=== PATIENT | male | born 1950 | race Caucasian/White ===

== ENCOUNTER 2020-01-14 11:26 | Outpatient (CLI) | payer BC, SELFPAY ==
[2020-01-14 12:02] LABS: Hemoglobin 14.1 g/dL (14.0-18.0); Mean Corpuscular HGB Conc 33.6 g/dl (32-36); Mean Corpuscular Hemoglobin 30.7 pg (26-34); Mean Corpuscular Volume 91.5 fl (80-100); Mean Platelet Volume 10.9 fl (7.4-10.4); Platelet Count Result 176 k/mm3 (150-375); Red Blood Count 4.59 M/mm3 (4.6-6.20); Red Cell Distribution Width 12.6 % (11.5-14.5); White Blood Count 6.9 K/mm3 (4.5-10.0)
[2020-01-14 12:14] LABS: Blood Urea Nitrogen 14 mg/dL (9-20); Calcium 9.2 mg/dL (8.4-10.2); Carbon Dioxide 29 mmol/L (22-30); Chloride 97 mmol/L (98-107); Estimated Glomerular Filt Rate > 60; Glucose 90 mg/dL (75-110); Potassium 4.1 mmol/L (3.4-5.0); Sodium 131 mmol/L (137-145)
== END 2020-01-14 11:27 | disposition home or self-care (01) ==
LOC: ANHLAB 11:26
PROVIDERS: PCP Family Medicine; Visit Provider Internal Medicine Critical Care Medicine
DX: J84.89 Other specified interstitial pulmonary diseases (principal); J84.9 Interstitial pulmonary disease, unspecified
CPT/HCPCS: 36415; 80048; 85027

== ENCOUNTER 2020-01-30 11:40 | Outpatient (CLI) | payer BC, SELFPAY ==
[2020-02-10 12:36] LABS: TPMT Activity 17
== END 2020-01-30 11:41 | disposition home or self-care (01) ==
PROVIDERS: PCP Family Medicine; Visit Provider Internal Medicine Critical Care Medicine
DX: J84.89 Other specified interstitial pulmonary diseases (principal); J84.9 Interstitial pulmonary disease, unspecified
CPT/HCPCS: 36415; 82657

== ENCOUNTER 2020-04-04 15:05 | Outpatient (RCR) | payer BC, SELFPAY ==
[2020-02-29 13:52] LABS: Basophils Percent Auto 0.7 % (0.2-1.2); Eosinophils Absolute Auto 0.3 K/mm3 (0-0.3); Eosinophils Percent Auto 4.1 % (0-4.4); Hematocrit 40.4 % (42.0-52.0); Hemoglobin 13.6 g/dL (14.0-18.0); Immature Granulocyte Absolute 0.04 K/mm3 (0.00-0.031); Immature Granulocyte Percent A 0.7 % (0-0.5); Lymphocytes Absolute Auto 1.05 K/mm3 (0.9-3.2); Lymphocytes Percent Auto 17.2 % (18.3-44.2); Mean Corpuscular HGB Conc 33.7 g/dl (32-36); Mean Corpuscular Hemoglobin 30.8 pg (26-34); Mean Corpuscular Volume 91.6 fl (80-100); Mean Platelet Volume 10.7 fl (7.4-10.4); Monocytes Absolute Auto 0.6 K/mm3 (0.1-0.6); Monocytes Percent Auto 9.8 % (2.6-8.5); Neutrophils Absolute Auto 4.1 K/mm3 (1.3-6.7); Neutrophils Percent Auto 67.5 % (45.5-73.1); Platelet Count Result 223 k/mm3 (150-375); Red Blood Count 4.41 M/mm3 (4.6-6.20); White Blood Count 6.1 K/mm3 (4.5-10.0)
[2020-04-04 16:07] LABS: Basophils Percent Auto 0.6 % (0.2-1.2); Eosinophils Absolute Auto 0.3 K/mm3 (0-0.3); Hematocrit 41.2 % (42.0-52.0); Hemoglobin 13.8 g/dL (14.0-18.0); Immature Granulocyte Absolute 0.02 K/mm3 (0.00-0.031); Immature Granulocyte Percent A 0.3 % (0-0.5); Lymphocytes Percent Auto 21.5 % (18.3-44.2); Mean Corpuscular HGB Conc 33.5 g/dl (32-36); Mean Corpuscular Hemoglobin 30.9 pg (26-34); Mean Corpuscular Volume 92.4 fl (80-100); Mean Platelet Volume 10.6 fl (7.4-10.4); Monocytes Absolute Auto 0.7 K/mm3 (0.1-0.6); Monocytes Percent Auto 9.3 % (2.6-8.5); Neutrophils Absolute Auto 4.5 K/mm3 (1.3-6.7); Neutrophils Percent Auto 64.3 % (45.5-73.1); Platelet Count Result 212 k/mm3 (150-375); Red Blood Count 4.46 M/mm3 (4.6-6.20); Red Cell Distribution Width 13.1 % (11.5-14.5)
== END 2020-05-29 23:59 | disposition home or self-care (01) ==
LOC: ANHLAB 15:05
PROVIDERS: PCP Family Medicine; Visit Provider Internal Medicine Critical Care Medicine
DX: Z51.81 Encounter for therapeutic drug level monitoring (principal); Z79.899 Other long term (current) drug therapy
CPT/HCPCS: 36415; 85025

== ENCOUNTER 2020-05-26 09:53 | Outpatient (CLI) | payer BC, SELFPAY ==
--- NOTE | ~2020-05-26 | CT_ITS ---
EXAMINATION: CT chest high resolution wo co DATE: 05/26/2020 10:08 INDICATION: J84.9 - Interstitial pulmonary disease, unspecified TECHNIQUE: Computed tomography (CT) of the chest was performed without intravenous contrast. Addition al 3D reconstructions utilizing coronal maximum intensity projection (MIP) were performed. Automated exposure control and iterative reconstruction technique were employed. The dose-length product was 26 2.41 mGy-cm. COMPARISON: 03/30/2019 FINDINGS: Again seen is scattered bilateral peripheral and lower lung predominant irregular septal line thicken ing with groundglass opacity and honeycombing consistent with usual interstitial pneumonia (UIP) ihsan altagracia chronic interstitial lung disease. Interval progression with increase in the amount of honeycombi ng in the right middle, left lower lobes and lingula. There are some associated bronchiectasis extend ing to the most severely affected regions of the lungs. No pleural effusion. Heart size is normal. At herosclerotic coronary artery calcification. Aortic valve calcification. Thoracic aorta is normal in caliber. There is enlargement of the central pulmonary arteries consistent with pulmonary arterial hy pertension. No interval change in mild likely reactive mediastinal lymphadenopathy. Mild upper thorac ic levocurvature with mild to moderate spondylosis. IMPRESSION: 1. Interval progression of peripheral and lower lung predominant usual interstitial pneumonia (UIP) p attern chronic interstitial lung disease. Reviewed, dictated and finalized at location . [facility] IMPRESSION: 1. Interval progression of peripheral and lower lung predominant usual intersti tial pneumonia (UIP) pattern chronic interstitial lung disease.
== END 2020-05-26 09:54 | disposition home or self-care (01) ==
PROVIDERS: PCP Family Medicine; Visit Provider Nurse Practitioner Family
DX: J84.9 Interstitial pulmonary disease, unspecified (principal)
CPT/HCPCS: 71250

== ENCOUNTER 2020-10-16 07:59 | Outpatient (CLI) | payer BC, SELFPAY ==
--- NOTE | 2020-10-16 17:06 | P.PCNPFT_ITS ---
PFT Interpretation This is a pulmonary function test with pre and post-bronchodilator spirometry, plethysmography and diffusing capacity. The test was performed and results interpreted in accordance with the 2019 and 2005 ATS/ERS Task Force guidelines respectively using the Global Lung Function Initiative-2012 reference equations. Patient demonstrated good effort and c ooperation. Reproducibility criteria were met. The quality of the pre bronchodilator spirometry maneuver was Grade A and post bronchodilator spirometry maneuver was Grade B. patient noted to have harsh continuous coughing throughout the testing. Findings: Spirometry: The contour of the expiratory flow tracing resembles that of a witch's hat . the contour of the inspiratory flow tracing is normal. The pre bronchodilator FVC is 2.47 L, 54% predicted. The pre bronchodilator FEV1 is 1.74 L, 51% predicted. The FEV1: FVC ratio 71%. The post bronchodilator FVC is 2.44 L, representing a 1% decrease. The post bronchodilator FEV1 is 1.77 L, representing 1% increase. Plethysmography: The total lung capacity is 4.78 L, 64% predicted. The functional residual capacity is 2.09 L, 53% predicted. The residual volume is 2.01 L, 78% predicted. Diffusing capacity: The absolute diffusion capacity is 11.3, 42% predicted. The diffusing capacity corrected for alveolar volume is 2.91, 76% predicted. In comparison to the most recent pulmonary function test in our laboratory on 01/31/2019 the post bronchodilator FVC is decreased from 2.73 L to 2.44 L. The post bronchodilator FEV1 as decreased from 2.07 L to 1.77 L. the total lung capacity is decreased from 5.82 L to 4.78 L. The functional residual capacity is decreased from 4.05 L to 2.09 L. The residual volume has decreased from 2.77 L to 2.01 L. The absolute diffusing capacity has decreased from 16.9 to 11.3. The diffusing capacity corrected for alveolar volume has decreased from 3.85 to 2.91. Impression: There is a moderately severe restrictive ventilatory abnormality. The spirometry is normal without evidence of an obstructive abnormality. There is no significant improvement after inhaling a single dose of albuterol. The absolute diffusing capacity is moderately decreased and normalizes when corrected for alveolar volume. when compared to his prior pulmonary function test on 01/31/2019 there has been a greater than anticipated time dependent decrease in FVC, FEV1, total lung capacity, functional residual capacity, residual volume, absolute diffusing capacity and diffusing capacity corrected for alveolar volume. Clinical correlation is recommended. PFT Procedure Performed PFT Procedure Performed Spirometry with Pre/Post Bronchodilator Plethysmography (Lung Vol) Diffusing Cap (DLCO)
== END 2020-10-16 08:00 | disposition home or self-care (01) ==
PROVIDERS: PCP Family Medicine; Visit Provider Nurse Practitioner Family
DX: R06.02 Shortness of breath (principal); J84.9 Interstitial pulmonary disease, unspecified; R94.2 Abnormal results of pulmonary function studies
CPT/HCPCS: 94060; 94726; 94729

== ENCOUNTER 2021-02-06 14:42 | Outpatient (CLI) | payer OTHER, SELFPAY ==
[2021-02-06 15:09] LABS: Hematocrit 40.9 % (42.0-52.0); Hemoglobin 13.9 g/dL (14.0-18.0); Mean Corpuscular Hemoglobin 31.9 pg (26-34); Mean Corpuscular Volume 93.8 fl (80-100); Mean Platelet Volume 10.4 fl (7.4-10.4); Platelet Count Result 182 k/mm3 (150-375); Red Blood Count 4.36 M/mm3 (4.6-6.20); Red Cell Distribution Width 13.3 % (11.5-14.5); White Blood Count 6.6 K/mm3 (4.5-10.0)
[2021-02-06 15:17] LABS: Add Urine Microscopic? YES; Appearance Urine Clear (Clear); Bilirubin Urine Negative (Negative); Blood Urine Negative (Negative); Color Urine Yellow (Yellow); Glucose Urine UA Negative (Negative); Ketones Urine Negative (Negative); Leukocyte Esterase Ur Negative LEU/UL (NEGATIVE); Nitrate Urine Negative (Negative); Protein Urine Negative (Negative); Specific Grav Ur 1.011 (1.001-1.035); WBC Urine 0-3 /hpf (0-3)
[2021-02-06 15:22] LABS: Alanine Aminotransferase 15 U/L (4-50); Albumin Level 4.4 g/dL (3.5-5.1); Alkaline Phosphatase 86 U/L (38-126); Anion Gap 10 mmol/L (8-16); Aspartate Amino Transferase 28 U/L (17-59); Bilirubin,Total 0.4 mg/dL (0.2-1.3); Blood Urea Nitrogen 13 mg/dL (9-20); Carbon Dioxide 24 mmol/L (22-30); Chloride 99 mmol/L (98-107); Cholesterol 137 mg/dL (0-200); Estimated Glomerular Filt Rate > 60; Glucose 94 mg/dL (65-110); HDL Direct 37 mg/dL; Potassium 4.4 mmol/L (3.4-5.0); Sodium 133 mmol/L (137-145); Triglycerides 161 mg/dL (<150)
[2021-02-06 15:33] LABS: LDL Cholesterol Direct 72 mg/dL
== END 2021-02-06 14:43 | disposition home or self-care (01) ==
LOC: ANHLAB 14:43
PROVIDERS: PCP Family Medicine; Visit Provider Family Medicine
DX: R53.83 Other fatigue (principal); E78.5 Hyperlipidemia, unspecified; I10 Essential (primary) hypertension
CPT/HCPCS: 36415; 80053; 80061; 81001; 84443; 85027

== ENCOUNTER 2021-02-23 15:00 | Outpatient (CLI) | payer OTHER, SELFPAY ==
[2021-02-23 16:28] LABS: Add Urine Microscopic? YES; Appearance Urine Clear (Clear); Bilirubin Urine Negative (Negative); Blood Urine 1+ (Negative); Color Urine Yellow (Yellow); Glucose Urine UA Negative (Negative); Ketones Urine Negative (Negative); Leukocyte Esterase Ur Negative LEU/UL (NEGATIVE); Nitrate Urine Negative (Negative); Protein Urine Negative (Negative); Specific Grav Ur 1.012 (1.001-1.035); Squamous Epithelial Cell Urine Rare /hpf (Few); WBC Urine 0-3 /hpf (0-3)
[2021-02-23 18:37] LABS: Prostate Specific Antigen 3.7 ng/mL (< OR = 4.0)
== END 2021-02-23 15:01 | disposition home or self-care (01) ==
PROVIDERS: PCP Family Medicine; Visit Provider Physician Assistant
DX: N40.1 Benign prostatic hyperplasia with lower urinary tract symptoms (principal); R31.9 Hematuria, unspecified
CPT/HCPCS: 36415; 81001; 84153

== ENCOUNTER → 2021-03-10 15:08 | Outpatient (CLI) | payer OTHER, SELFPAY ==
--- NOTE | ~2021-03-10 | CT_ITS ---
EXAMINATION: CT abdomen pelvis wo con DATE: 03/10/2021 15:31 INDICATION: Microscopic hematuria. TECHNIQUE: Computed tomography (CT) of the abdomen and pelvis was performed without intravenous contr ast. Automated exposure control and iterative reconstruction technique were employed. The dose-length product was 1002.51 mGy-cm. COMPARISON: Chest CT 05/26/2020. FINDINGS: The visualized portions of the lung bases demonstrates extensive septal thickening, groundg lass opacities, bronchiectasis, and peripheral honeycombing, consistent with chronic interstitial sherin g disease in a pattern of usual interstitial pneumonia (UIP). There is gas in right chest wall. The h eart size is normal. There are coronary artery calcifications. No pericardial effusion. There is a sm all sliding hiatal hernia. The liver, gallbladder, spleen, pancreas, and adrenal glands are normal. T here are three 1-2 mm stones in right kidney. There are approximately four 1 mm stones in left kidney . There is diffuse bladder wall thickening, likely secondary to chronic outlet obstruction from the m oderately enlarged prostate. The bladder is distended. There are bladder stones measuring up to 3 mm. There are no dilated loops of bowel. The appendix is normal. There are no pathologically enlarged ly mph nodes. There is no free intraperitoneal fluid. There is severe lumbar spondylosis. IMPRESSION: 1. Small bilateral nonobstructing kidney stones. 2. Small bladder stones. 3. Diffuse bladder wall thickening, likely secondary to chronic outlet obstruction from the moderatel y enlarged prostate. 4. Chronic interstitial lung disease in a pattern of usual interstitial pneumonia (UIP). 5. Gas in right chest wall of uncertain etiology. Reviewed, dictated and finalized at location A. IMPRESSION: 1. Small bilateral nonobstructing kidney stones. 2. Small bladder stones. 3. Diffuse bladder wall thickening, likely secondary to chronic outlet obstruct ion from the moderately enlarged prostate. 4. Chronic interstitial lung disease in a pattern of usual interstitial pneumon ia (UIP). 5. Gas in right chest wall of uncertain etiology.
== END ==
PROVIDERS: PCP Family Medicine; Visit Provider Physician Assistant
DX: N40.1 Benign prostatic hyperplasia with lower urinary tract symptoms (principal); R31.9 Hematuria, unspecified; N21.0 Calculus in bladder; R91.8 Other nonspecific abnormal finding of lung field; N20.0 Calculus of kidney
CPT/HCPCS: 74176

== ENCOUNTER 2021-05-08 01:30 | Day surgery (SDC) | payer OTHER, SELFPAY ==
[2021-04-17 14:42] VITALS: BMI 28.4
--- NOTE | 2021-05-06 13:07 | PM.HPGS ---
History of Present Illness History of Present Illness Consent: Risks, benefits, and alternatives have been discussed and questions answered. Patient agrees to proceed with procedure. Chief complaint: neoplam screening Narrative: Anders Umaña is a 71 year old male who Was referred for colon cancer screening. His last colonoscopy was 11 years ago Review of Systems Review of Systems: All systems reviewed & are unremarkable except as noted in HPI and below PMFSH Past Medical History Medical History Allergic rhinitis Benign prostatic hyperplasia with lower urinary tract symptoms Chronic GERD Essential (primary) hypertension HLD (hyperlipidemia) ILD (interstitial lung disease) KRISTI (obstructive sleep apnea) Rosacea Family History Family History Father Family history of cardiovascular disease Mother Family history of cardiovascular disease Cerebrovascular accident Social History Social History Smoking status: Never smoker Second hand tobacco smoke exposure: No Alcohol intake: never Substance use: former Substance use type: does not use Living arrangements: with family Gender identity (if verbalized by the patient): Male Sexual Orientation (if Verbalized by the Patient): Straight or Heterosexual Spiritual care concerns: No Meds Home Medications and Allergies Home Medications Medication Instructions Recorded Confirmed Type cetirizine 10 mg tablet 5 mg PO DAILY PRN 07/19/19 04/17/21 History metronidazole 0.75 % topical cream 1 applic TOPICAL BID #45 gm 07/20/19 04/17/21 Rx losartan 50 mg tablet 50 mg PO DAILY #90 tablet 02/03/21 04/17/21 Rx finasteride 5 mg tablet 5 mg PO DAILY #90 tablet 03/13/21 04/17/21 Rx azelastine 137 mcg (0.1 %) nasal 2 spray NASAL Q12H #90 ml 03/26/21 04/17/21 Rx spray aerosol azathioprine 150 mg PO DAILY 04/17/21 04/17/21 History cholecalciferol (vitamin D3) 25 mcg PO DAILY 04/17/21 04/17/21 History [Vitamin D3] simvastatin 40 mg PO DAILY 04/17/21 04/17/21 History Allergies Allergy/AdvReac Type Severity Reaction Status Date / Time cat dander Allergy Other Verified 05/08/21 06:14 grass pollen Allergy Other Verified 05/08/21 06:14 Exam Resp: Auscultation: clear to auscultation bilaterally Cardio: Rate: regular rate Rhythm: regular rhythm GI: GI Palp: Yes Soft to palpation and No Tenderness to palpation present (GI) Assessment and Plan Assessment and plan (1) Colon cancer screening: Code(s): Z12.11 - Encounter for screening for malignant neoplasm of colon Status: Acute Assessment and Plan: Colonoscopy with possible biopsy or polypectomy or cautery or injection of substances.
[2021-05-08 06:15] VITALS: BP 137/86; PULSE 94; RESP 20; TEMP 36.6; O2SAT 97; BMI 27.7
[2021-05-08] MEDS: LACTATED RINGERS 1,000 ML 150 ML IV CONT (06:26)
--- NOTE | 2021-05-08 06:36 | WPDANESEPPF ---
Anes - Initial Pre Proc Eval Procedure: Operation Date: 05/08/21 07:30 Proposed Procedures p Screening Colonoscopy - Todd Sehikh MD Date/Time: 05/08/21 06:36 Surgeon: Todd Sheikh MD Pre Op Diagnosis: neoplam screening Patient Data Age: 71 Gender: M Height: 1.83 m Weight: 92.8 kg Last Vital Signs Temp 36.6 C 05/08/21 06:15 Pulse 94 05/08/21 06:15 Resp 20 05/08/21 06:15 BP 137/86 05/08/21 06:15 Pulse Ox 97 05/08/21 06:15 Allergies Allergy/AdvReac Type Severity Reaction Status Date / Time cat dander Allergy Other Verified 05/08/21 06:14 grass pollen Allergy Other Verified 05/08/21 06:14 Home Medications Medication Instructions Recorded Confirmed Type cetirizine 10 mg tablet 5 mg PO DAILY PRN 07/19/19 04/17/21 History metronidazole 0.75 % topical cream 1 applic TOPICAL BID #45 gm 07/20/19 04/17/21 Rx losartan 50 mg tablet 50 mg PO DAILY #90 tablet 02/03/21 04/17/21 Rx finasteride 5 mg tablet 5 mg PO DAILY #90 tablet 03/13/21 04/17/21 Rx azelastine 137 mcg (0.1 %) nasal 2 spray NASAL Q12H #90 ml 03/26/21 04/17/21 Rx spray aerosol azathioprine 150 mg PO DAILY 04/17/21 04/17/21 History cholecalciferol (vitamin D3) 25 mcg PO DAILY 04/17/21 04/17/21 History [Vitamin D3] simvastatin 40 mg PO DAILY 04/17/21 04/17/21 History Patient hx anesthesia problems: none Family hx anesthesia problems: none Results Review: All pre-operative results and documents have been reviewed as part of the pre-operative evaluation. [facility] Past Medical History Medical History Allergic rhinitis Benign prostatic hyperplasia with lower urinary tract symptoms Chronic GERD Essential (primary) hypertension HLD (hyperlipidemia) ILD (interstitial lung disease) KRISTI (obstructive sleep apnea) Rosacea Family History Family History Father Family history of cardiovascular disease Mother Family history of cardiovascular disease Cerebrovascular accident Social History Social History Smoking status: Never smoker Second hand tobacco smoke exposure: No Alcohol intake: never Substance use: former Substance use type: does not use Living arrangements: with family Gender identity (if verbalized by the patient): Male Sexual Orientation (if Verbalized by the Patient): Straight or Heterosexual Spiritual care concerns: No Anes - Eval Final PreProcedure Day of Procedure 05/08/21 06:36 Patient weight: overweight Heart: regular rate and rhythm Lungs: clear to auscultation Airway: Mallampati scale class II Neurological: alert and oriented Last oral intake: >/= 8 hours ASA classification: III Emergent: no Anesthetic plan: proceed Anesthesia type and monitoring: general GIVS and standard monitoring Results Review: All pre-operative results and documents have been reviewed as part of the pre-operative evaluation. Informed Consent: The patient's anesthetic plan and its attendant risks and benefits were discussed with the patient/family/POA. Questions were solicited and answers provided to the satisfaction of the patient/family/POA.
[2021-05-08 07:47] VITALS: BP 129/97; PULSE 93; RESP 30; O2SAT 97
[2021-05-08 07:57] VITALS: BP 125/83; PULSE 96; RESP 29; O2SAT 94
[2021-05-08 08:07] VITALS: BP 120/81; PULSE 85; RESP 32; O2SAT 95
== END 2021-05-08 08:17 | disposition home or self-care (01) ==
PROVIDERS: PCP Family Medicine; Visit Provider Internal Medicine Gastroenterology
PROC: 0DJD8ZZ Inspection of Lower Intestinal Tract, Via Natural or Artificial Opening Endoscopic (ICD-10-PCS; CPT 45378; principal; 2021-05-08 07:30)
DX: Z12.11 Encounter for screening for malignant neoplasm of colon (principal); I10 Essential (primary) hypertension; E78.5 Hyperlipidemia, unspecified; K21.9 Gastro-esophageal reflux disease without esophagitis; N40.1 Benign prostatic hyperplasia with lower urinary tract symptoms; J84.9 Interstitial pulmonary disease, unspecified; J30.9 Allergic rhinitis, unspecified; L71.9 Rosacea, unspecified; G47.33 Obstructive sleep apnea (adult) (pediatric)
CPT/HCPCS: 45378; J2704; J7120

== ENCOUNTER 2021-05-20 14:37 | Outpatient (CLI) | payer OTHER, SELFPAY ==
[2021-05-20 15:04] LABS: Add Urine Microscopic? NO; Appearance Urine Clear (Clear); Bilirubin Urine Negative (Negative); Blood Urine Negative (Negative); Color Urine Yellow (Yellow); Glucose Urine UA Negative (Negative); Ketones Urine Negative (Negative); Leukocyte Esterase Ur Negative LEU/UL (NEGATIVE); Nitrate Urine Negative (Negative); Protein Urine Negative (Negative); Urobilinogen Urine Negative mg/dL (<2.0)
== END 2021-05-20 14:38 | disposition home or self-care (01) ==
PROVIDERS: PCP Family Medicine; Visit Provider Physician Assistant
DX: N13.8 Other obstructive and reflux uropathy (principal); N40.1 Benign prostatic hyperplasia with lower urinary tract symptoms; R31.9 Hematuria, unspecified
CPT/HCPCS: 81003

== ENCOUNTER 2021-08-04 14:18 | Outpatient (CLI) | payer MEDICARE, SELFPAY ==
[2021-08-04 15:19] LABS: Alanine Aminotransferase 17 U/L (4-50); Albumin Level 4.5 g/dL (3.5-5.1); Alkaline Phosphatase 75 U/L (38-126); Anion Gap 9 mmol/L (8-16); Aspartate Amino Transferase 32 U/L (17-59); Bilirubin,Total 0.6 mg/dL (0.2-1.3); Blood Urea Nitrogen 16 mg/dL (9-20); Calcium 9.6 mg/dL (8.4-10.2); Carbon Dioxide 30 mmol/L (22-30); Chloride 97 mmol/L (98-107); Estimated Glomerular Filt Rate > 60; Glucose 105 mg/dL (65-110); Potassium 4.1 mmol/L (3.4-5.0); Sodium 136 mmol/L (137-145)
[2021-08-04 22:00] LABS: Hemoglobin A1C 5.1 % (<5.7)
== END 2021-08-04 14:19 | disposition home or self-care (01) ==
PROVIDERS: PCP Family Medicine; Visit Provider Nurse Practitioner Family
DX: E78.5 Hyperlipidemia, unspecified (principal); I10 Essential (primary) hypertension; R73.01 Impaired fasting glucose
CPT/HCPCS: 36415; 80053; 83036

== ENCOUNTER 2021-10-27 14:56 | Outpatient (CLI) | payer MEDICARE, SELFPAY ==
[2021-10-27 16:16] LABS: Alanine Aminotransferase 18 U/L (4-50); Albumin Level 4.6 g/dL (3.5-5.1); Alkaline Phosphatase 96 U/L (38-126); Aspartate Amino Transferase 37 U/L (17-59); Bilirubin,Total 0.6 mg/dL (0.2-1.3)
== END 2021-10-27 14:57 | disposition home or self-care (01) ==
LOC: ANHLAB 14:59
PROVIDERS: PCP Family Medicine; Visit Provider Internal Medicine Pulmonary Disease
DX: J84.9 Interstitial pulmonary disease, unspecified (principal)
CPT/HCPCS: 36415; 80076; 94625

== ENCOUNTER 2021-11-30 15:23 | Outpatient (CLI) | payer MEDICARE, SELFPAY ==
[2021-11-30 15:57] LABS: Alanine Aminotransferase 20 U/L (6-50); Albumin Level 4.3 g/dL (3.5-5.1); Alkaline Phosphatase 103 U/L (38-126); Aspartate Amino Transferase 34 U/L (17-59); Bilirubin,Total 0.4 mg/dL (0.2-1.3)
== END 2021-11-30 15:24 | disposition home or self-care (01) ==
PROVIDERS: PCP Family Medicine; Visit Provider Internal Medicine Pulmonary Disease
DX: J84.9 Interstitial pulmonary disease, unspecified (principal)
CPT/HCPCS: 36415; 80076

== ENCOUNTER 2022-01-01 13:30 | Outpatient (RCR) | payer MEDICARE, SELFPAY | END 2022-01-01 23:59 | disposition home or self-care (01) | LOC: ANHCPREHAB 13:30 | PROVIDERS: PCP Family Medicine | DX: J84.9 Interstitial pulmonary disease, unspecified (principal) | CPT/HCPCS: 94625 ==

== ENCOUNTER 2022-01-16 12:30 | Outpatient (RCR) | payer MEDICARE, SELFPAY ==
[2022-01-16 13:39] LABS: Alanine Aminotransferase 21 U/L (6-50); Albumin Level 4.4 g/dL (3.5-5.1); Alkaline Phosphatase 71 U/L (38-126); Aspartate Amino Transferase 30 U/L (17-59); Bilirubin,Total 0.5 mg/dL (0.2-1.3)
== END 2022-04-16 23:59 | disposition home or self-care (01) ==
LOC: ANHLAB 12:30
PROVIDERS: PCP Family Medicine
DX: Z51.81 Encounter for therapeutic drug level monitoring (principal); Z79.899 Other long term (current) drug therapy
CPT/HCPCS: 36415; 80076

== ENCOUNTER 2022-03-12 13:30 | Outpatient (RCR) | payer MEDICARE, SELFPAY | END 2022-03-12 15:52 | disposition home or self-care (01) | LOC: ANHCPREHAB 13:30 | PROVIDERS: PCP Family Medicine | DX: J84.9 Interstitial pulmonary disease, unspecified (principal) | CPT/HCPCS: G0239 ==

== ENCOUNTER 2022-03-26 07:56 | Outpatient (CLI) | payer MEDICARE, SELFPAY ==
--- NOTE | 2022-03-26 11:19 | WPDSIXMINUTE ---
Six Minute Walk Procedure Procedure Performed Pulmonary Stress Test (6 min walk) Six Minute Walk Six Minute Walk: This 6 minute walk test was carried out with the patient breathing ambient air. The pre walk oxyhemoglobin saturation was 96%. The patient walked over 274 m with no stops during testing. During the walk the oxyhemoglobin saturation remained in the range of 93%-98%. The perceived dyspnea on the Monik scale at baseline was 0 and increased to 3 at the end of testing. Impression: No evidence of oxyhemoglobin desaturation on this testing.
== END 2022-03-26 07:57 | disposition home or self-care (01) ==
LOC: ANHPFT 08:01
PROVIDERS: PCP Family Medicine
DX: J84.9 Interstitial pulmonary disease, unspecified (principal)
CPT/HCPCS: 94618

== ENCOUNTER 2022-04-01 11:49 | Outpatient (CLI) | payer MEDICARE, SELFPAY ==
[2022-04-01 12:17] LABS: Alanine Aminotransferase 25 U/L (6-50); Albumin Level 4.5 g/dL (3.5-5.1); Alkaline Phosphatase 69 U/L (38-126); Aspartate Amino Transferase 32 U/L (17-59); Bilirubin,Total 0.6 mg/dL (0.2-1.3)
== END 2022-04-01 11:50 | disposition home or self-care (01) ==
LOC: ANHLAB 11:53
PROVIDERS: PCP Family Medicine
DX: Z79.899 Other long term (current) drug therapy (principal)
CPT/HCPCS: 36415; 80076

== ENCOUNTER 2022-05-28 14:21 | Outpatient (CLI) | payer MEDICARE, SELFPAY ==
[2022-05-28 15:01] LABS: Alanine Aminotransferase 24 U/L (6-50); Albumin Level 4.5 g/dL (3.5-5.1); Alkaline Phosphatase 90 U/L (38-126); Aspartate Amino Transferase 32 U/L (17-59); Bilirubin,Total 0.5 mg/dL (0.2-1.3)
== END 2022-05-28 14:22 | disposition home or self-care (01) ==
LOC: ANHLAB 14:24
PROVIDERS: PCP Family Medicine
DX: Z79.899 Other long term (current) drug therapy (principal)
CPT/HCPCS: 36415; 80076

== ENCOUNTER 2022-08-18 14:30 | Outpatient (CLI) | payer MEDICARE, SELFPAY ==
[2022-08-18 14:48] LABS: Hematocrit 43.3 % (42.0-52.0); Mean Corpuscular HGB Conc 32.3 g/dl (32-36); Mean Corpuscular Hemoglobin 31.1 pg (26-34); Mean Corpuscular Volume 96.2 fl (80-100); Mean Platelet Volume 10.5 fl (7.4-10.4); Platelet Count Result 161 k/mm3 (150-375); Red Cell Distribution Width 13.2 % (11.5-14.5); White Blood Count 6.4 K/mm3 (4.5-10.0)
[2022-08-18 14:58] LABS: Alanine Aminotransferase 25 U/L (6-50); Albumin Level 4.3 g/dL (3.5-5.1); Alkaline Phosphatase 74 U/L (38-126); Anion Gap 3 mmol/L (8-16); Aspartate Amino Transferase 29 U/L (17-59); Bilirubin,Total 0.4 mg/dL (0.2-1.3); Blood Urea Nitrogen 14 mg/dL (9-20); Calcium 9.4 mg/dL (8.4-10.2); Carbon Dioxide 31 mmol/L (22-30); Chloride 95 mmol/L (98-107); Cholesterol 156 mg/dL (0-200); Estimated Glomerular Filt Rate > 60; Glucose 101 mg/dL (65-110); HDL Direct 46 mg/dL; Sodium 129 mmol/L (137-145); Triglycerides 144 mg/dL (<150)
[2022-08-18 15:04] LABS: Appearance Urine Clear (Clear); Bilirubin Urine Negative (Negative); Blood Urine Trace-intact (Negative); Color Urine Yellow (Yellow); Glucose Urine UA Negative (Negative); Ketones Urine Negative (Negative); Leukocyte Esterase Ur Trace LEU/UL (NEGATIVE); Nitrate Urine Negative (Negative); Protein Urine Negative (Negative); Specific Grav Ur 1.015 (1.001-1.035)
[2022-08-18 15:09] LABS: LDL Cholesterol Direct 71 mg/dL
[2022-08-18 15:11] LABS: Amorphous Sediment Urine Few; Mucus Urine Rare /lpf; Squamous Epithelial Cell Urine Rare /hpf (Few)
[2022-08-18 15:13] LABS: Add Urine Microscopic? YES
== END 2022-08-18 14:31 | disposition home or self-care (01) ==
PROVIDERS: PCP Family Medicine; Visit Provider Nurse Practitioner Family
DX: Z00.00 Encounter for general adult medical examination without abnormal findings (principal); E78.5 Hyperlipidemia, unspecified; I10 Essential (primary) hypertension; R73.01 Impaired fasting glucose
CPT/HCPCS: 36415; 80053; 80061; 81001; 84443; 85027

== ENCOUNTER 2022-09-15 14:44 | Outpatient (CLI) | payer MEDICARE, SELFPAY ==
[2022-09-15 15:57] LABS: Alanine Aminotransferase 25 U/L (6-50); Albumin Level 4.5 g/dL (3.5-5.1); Alkaline Phosphatase 80 U/L (38-126); Aspartate Amino Transferase 33 U/L (17-59); Bilirubin,Total 0.5 mg/dL (0.2-1.3)
== END 2022-09-15 14:45 | disposition home or self-care (01) ==
LOC: ANHLAB 14:47
PROVIDERS: PCP Family Medicine
DX: Z79.899 Other long term (current) drug therapy (principal)
CPT/HCPCS: 36415; 80076

== ENCOUNTER 2023-02-23 14:47 | Outpatient (CLI) | payer MEDICARE, SELFPAY ==
[2023-02-23 15:19] LABS: Alanine Aminotransferase 22 U/L (6-50); Albumin Level 4.5 g/dL (3.5-5.1); Alkaline Phosphatase 86 U/L (38-126); Anion Gap 4 mmol/L (8-16); Aspartate Amino Transferase 30 U/L (17-59); Bilirubin,Total 0.4 mg/dL (0.2-1.3); Blood Urea Nitrogen 17 mg/dL (9-20); Calcium 9.6 mg/dL (8.4-10.2); Carbon Dioxide 33 mmol/L (22-30); Chloride 98 mmol/L (98-107); Estimated Glomerular Filt Rate > 60; Glucose 92 mg/dL (65-110); Potassium 4.4 mmol/L (3.4-5.0); Sodium 135 mmol/L (137-145)
[2023-02-23 15:48] LABS: Prostate Specific Antigen 2.1 ng/mL (< OR = 4.0)
== END 2023-02-23 14:48 | disposition home or self-care (01) ==
LOC: ANHLAB 14:48
PROVIDERS: PCP Family Medicine; Visit Provider Family Medicine
DX: N40.1 Benign prostatic hyperplasia with lower urinary tract symptoms (principal); R35.1 Nocturia; I10 Essential (primary) hypertension
CPT/HCPCS: 36415; 80053; 84153

== ENCOUNTER 2023-04-02 18:49 | Emergency (ER) | payer MEDICARE, SELFPAY ==
--- NOTE | 2023-04-02 18:52 | ED.WOUNDLAC ---
HPI - Wound/Laceration General Chief Complaint: Skin/Abscess/Foreign Body Stated Complaint: Dog Bite Left Hand Time Seen by Provider: 04/02/23 18:52 Source: patient Mode of arrival: ambulatory Limitations: no limitations History of Present Illness HPI narrative: Anders is a 73-year-old male patient presenting to the clinic today with complaints of a dog bite to his left hand. He reports this occurred this evening when he was petting his son's dog and the dog turned around and bit his left hand. Has skin abrasions to the left hand x3. Tetanus is not up-to-date. Related Data Home Medications Medication Instructions Recorded Confirmed cetirizine 10 mg tablet 5 mg PO DAILY PRN Allergy Symptoms 07/19/19 04/02/23 cholecalciferol (vitamin D3) 25 25 mcg PO DAILY 04/17/21 02/25/23 mcg (1,000 unit) tablet (Vitamin D3) nintedanib 150 mg capsule 150 mg PO Q12H 09/22/21 04/02/23 Allergies Allergy/AdvReac Type Severity Reaction Status Date / Time cat dander Allergy Other Verified 04/02/23 19:10 grass pollen Allergy Other Verified 04/02/23 19:10 Review of Systems Review of Systems: Pertinent positives per HPI. Patient denies any fever, chills, rash, headache, visual changes, dizziness, cough, runny nose, sore throat, shortness of breath, chest pain, palpitations, nausea, vomiting, diarrhea, constipation, abdominal pain, or any urinary issues. PMFSH Past Medical History Medical History Allergic rhinitis Benign prostatic hyperplasia with lower urinary tract symptoms Chronic GERD Essential (primary) hypertension HLD (hyperlipidemia) ILD (interstitial lung disease) KRISTI (obstructive sleep apnea) Rosacea Family History Family History Father Family history of cardiovascular disease CHF (congestive heart failure) Mother Family history of cardiovascular disease Cerebrovascular accident Social History Social History Smoking status: Never smoker Second hand tobacco smoke exposure: No Alcohol intake: never Substance use: former Substance use type: does not use Living arrangements: with family Occupation/Education: occupation Gender identity (if verbalized by the patient): Male Sexual Orientation (if Verbalized by the Patient): Straight or Heterosexual Spiritual care concerns: No Comments At the time of my signature, I reviewed and agree with the nursing past medical, surgical, social, and family history. There is no relevant family history pertinent to the patient complaint. Exam Narrative: General: Well-developed, well nourished, in no apparent distress Head: Normocephalic, atraumatic. Cardio: Regular rate and rhythm, s1 and s2 normal, no murmur appreciated. Resp: Clear to auscultation bilaterally, no rhonchi, rales, wheezing or rubs. Integumentary: [place], warm, and dry, 3 skin tear wounds to the left dorsal hand measuring 5 cm, 3 cm, and 1 cm, bleeding controlled Course Course Emergency Course: Portions of this record may have been created with voice recognition software. Level of Care: Express Care Visit Vital Signs Vital signs: Vital signs reviewed Procedures Laceration Laceration 1: Date: 04/02/23 Site: hand Side (If applicable): left Size (cm): 5 (3 cm, and 1 cm) Description: flap and irregular Depth: simple, single layer Pre-repair: wound explored and irrigated ====== Skin Level ====== Skin layer closed with: steri strips ====== Subcutaneous Layer ====== ====== Muscle Layer ====== ====== Tendon Layer ====== Dressing: Verbal consent obtained for laceration repair. Risk and benefits explained and patient voiced understanding. Area was cleansed with skin antiseptic soap. Steri-Strips were used to bring the w
[2023-04-02 19:04] VITALS: BP 140/92; PULSE 107; RESP 24; TEMP 37.1; O2SAT 95
[2023-04-02] MEDS: TETANUS,DIPHTHERIA,AC PERTUSSIS ADULT (0.5 ML) BOOSTRIX IM (19:27)
== END 2023-04-02 20:06 | disposition home or self-care (01) ==
PROVIDERS: Emergency Provider Nurse Practitioner Family; PCP Family Medicine
DX: S61.412A Laceration without foreign body of left hand, initial encounter (principal); W54.0XXA Bitten by dog, initial encounter; Z23 Encounter for immunization; N40.1 Benign prostatic hyperplasia with lower urinary tract symptoms; K21.9 Gastro-esophageal reflux disease without esophagitis; I10 Essential (primary) hypertension; E78.5 Hyperlipidemia, unspecified
CPT/HCPCS: 90471; 90715; 99213; G0463

== ENCOUNTER 2023-08-24 08:07 | Outpatient (CLI) | payer MEDICARE, SELFPAY ==
[2023-08-24 08:51] LABS: Hematocrit 46.5 % (42.0-52.0); Hemoglobin 14.5 g/dL (14.0-18.0); Mean Corpuscular HGB Conc 31.2 g/dl (32-36); Mean Corpuscular Hemoglobin 30.2 pg (26-34); Mean Corpuscular Volume 96.9 fl (80-100); Mean Platelet Volume 10.7 fl (7.4-10.4); Platelet Count Result 193 k/mm3 (150-375); Red Cell Distribution Width 14.5 % (11.5-14.5); White Blood Count 7.5 K/mm3 (4.5-10.0)
[2023-08-24 08:54] LABS: Appearance Urine Clear (Clear); Bacteria Urine None Seen /hpf; Bilirubin Urine Negative (Negative); Color Urine Yellow (Yellow); Glucose Urine UA Negative (Negative); Ketones Urine Negative (Negative); Leukocyte Esterase Ur Negative LEU/UL (NEGATIVE); Nitrate Urine Negative (Negative); Non Pathogenic Casts 0-2; Protein Urine Negative (Negative); Specific Grav Ur 1.018 (1.001-1.035); Squamous Epithelial Cell Urine None seen /hpf (Few); WBC Urine 0-5 /hpf (0-3)
[2023-08-24 09:00] LABS: Alanine Aminotransferase 23 U/L (6-50); Alkaline Phosphatase 64 U/L (38-126); Anion Gap 3 mmol/L (8-16); Aspartate Amino Transferase 32 U/L (17-59); Bilirubin,Total 0.7 mg/dL (0.2-1.3); Blood Urea Nitrogen 22 mg/dL (9-20); Calcium 9.8 mg/dL (8.4-10.2); Carbon Dioxide 34 mmol/L (22-30); Chloride 101 mmol/L (98-107); Cholesterol 161 mg/dL (0-200); Estimated Glomerular Filt Rate > 60; Glucose 92 mg/dL (65-110); HDL Direct 48 mg/dL; Potassium 4.1 mmol/L (3.4-5.0); Sodium 138 mmol/L (137-145); Triglycerides 101 mg/dL (<150)
[2023-08-24 09:06] LABS: Add Urine Microscopic? YES
[2023-08-24 09:10] LABS: LDL Cholesterol Direct 89 mg/dL
[2023-08-24 09:28] LABS: Prostate Specific Antigen 2.6 ng/mL (< OR = 4.0)
== END 2023-08-24 08:08 | disposition home or self-care (01) ==
LOC: ANHLAB 08:11
PROVIDERS: PCP Family Medicine; Visit Provider Family Medicine
DX: E78.5 Hyperlipidemia, unspecified (principal); I10 Essential (primary) hypertension; N40.1 Benign prostatic hyperplasia with lower urinary tract symptoms; Z00.00 Encounter for general adult medical examination without abnormal findings
CPT/HCPCS: 36415; 80053; 80061; 81001; 84153; 84443; 85027

== ENCOUNTER 2023-10-10 13:48 | Outpatient (CLI) | payer MEDICARE, SELFPAY ==
[2023-10-10 14:45] LABS: Basophils Percent Auto 0.4 % (0.2-1.2); Eosinophils Absolute Auto 0.2 K/mm3 (0-0.3); Eosinophils Percent Auto 1.7 % (0-4.4); Hematocrit 48.1 % (42.0-52.0); Hemoglobin 15.3 g/dL (14.0-18.0); Immature Granulocyte Absolute 0.03 K/mm3 (0.00-0.031); Immature Granulocyte Percent A 0.3 % (0-0.5); Lymphocytes Absolute Auto 1.05 K/mm3 (0.9-3.2); Lymphocytes Percent Auto 10.6 % (18.3-44.2); Mean Corpuscular HGB Conc 31.8 g/dl (32-36); Mean Corpuscular Hemoglobin 30.4 pg (26-34); Mean Corpuscular Volume 95.6 fl (80-100); Mean Platelet Volume 11.5 fl (7.4-10.4); Monocytes Absolute Auto 0.6 K/mm3 (0.1-0.6); Monocytes Percent Auto 5.6 % (2.6-8.5); Neutrophils Absolute Auto 8.1 K/mm3 (1.3-6.7); Neutrophils Percent Auto 81.4 % (45.5-73.1); Platelet Count Result 246 k/mm3 (150-375); Red Blood Count 5.03 M/mm3 (4.6-6.20)
[2023-10-10 15:02] LABS: Anion Gap 8 mmol/L (4-12); Blood Urea Nitrogen 17 mg/dL (9-20); Calcium 9.9 mg/dL (8.4-10.2); Carbon Dioxide 30 mmol/L (22-30); Chloride 100 mmol/L (98-107); Estimated Glomerular Filt Rate > 60; Glucose 95 mg/dL (65-110); Sodium 138 mmol/L (137-145)
== END 2023-10-10 13:49 | disposition home or self-care (01) ==
PROVIDERS: PCP Family Medicine
DX: I27.20 Pulmonary hypertension, unspecified (principal); R07.89 Other chest pain; J84.9 Interstitial pulmonary disease, unspecified
CPT/HCPCS: 36415; 80048; 85025

== ENCOUNTER 2023-11-29 09:30 | Outpatient (RCR) | payer MEDICARE, SELFPAY ==
[2023-08-02 08:51] VITALS: PULSE 81
== END 2023-11-29 23:59 | disposition home or self-care (01) ==
LOC: ANHCPREHAB 09:30
PROVIDERS: PCP Family Medicine; Visit Provider Internal Medicine Pulmonary Disease
DX: J84.9 Interstitial pulmonary disease, unspecified (principal)
CPT/HCPCS: 94625; G0239

== ENCOUNTER 2024-01-13 09:30 | Outpatient (RCR) | payer MEDICARE, SELFPAY ==
[2023-12-01 00:03] VITALS: PULSE 81
== END 2024-01-24 09:48 | disposition home or self-care (01) ==
LOC: ANHCPREHAB 09:30
PROVIDERS: PCP Family Medicine; Visit Provider Internal Medicine Pulmonary Disease
DX: J84.9 Interstitial pulmonary disease, unspecified (principal)
CPT/HCPCS: G0239

== ENCOUNTER 2024-01-18 15:27 | Outpatient (RCR) | payer MEDICARE, SELFPAY ==
[2024-01-18 17:46] LABS: Alanine Aminotransferase 20 U/L (6-50); Albumin Level 4.1 g/dL (3.5-5.1); Alkaline Phosphatase 66 U/L (38-126); Aspartate Amino Transferase 35 U/L (17-59); Bilirubin,Total 0.5 mg/dL (0.2-1.3)
== END 2024-04-17 23:59 | disposition home or self-care (01) ==
LOC: ANHLAB 15:27
PROVIDERS: PCP Family Medicine; Visit Provider Internal Medicine Pulmonary Disease
DX: Z51.81 Encounter for therapeutic drug level monitoring (principal); Z79.899 Other long term (current) drug therapy
CPT/HCPCS: 36415; 80076

== ENCOUNTER 2024-02-28 13:55 | Outpatient (CLI) | payer MEDICARE, SELFPAY ==
[2024-02-28 14:45] LABS: Alanine Aminotransferase 17 U/L (6-50); Albumin Level 4.1 g/dL (3.5-5.1); Alkaline Phosphatase 72 U/L (38-126); Anion Gap 6 mmol/L (4-12); Aspartate Amino Transferase 30 U/L (17-59); Bilirubin,Total 0.4 mg/dL (0.2-1.3); Blood Urea Nitrogen 13 mg/dL (9-20); Calcium 9.4 mg/dL (8.4-10.2); Carbon Dioxide 36 mmol/L (22-30); Chloride 94 mmol/L (98-107); Estimated Glomerular Filt Rate > 60; Glucose 131 mg/dL (65-110); Potassium 3.8 mmol/L (3.4-5.0); Sodium 136 mmol/L (137-145)
== END 2024-02-28 13:56 | disposition home or self-care (01) ==
LOC: ANHLAB 13:59
PROVIDERS: PCP Family Medicine; Visit Provider Family Medicine
DX: I10 Essential (primary) hypertension (principal)
CPT/HCPCS: 36415; 80053

== ENCOUNTER 2024-07-26 15:38 | Outpatient (RCR) | payer MEDICARE, SELFPAY ==
[2024-07-26 17:00] LABS: Alanine Aminotransferase 16 U/L (6-50); Albumin Level 3.9 g/dL (3.5-5.1); Alkaline Phosphatase 63 U/L (38-126); Aspartate Amino Transferase 25 U/L (17-59); Bilirubin,Total 0.5 mg/dL (0.2-1.3)
== END 2024-10-24 23:59 | disposition home or self-care (01) ==
LOC: ANHLAB 15:38
PROVIDERS: PCP Family Medicine; Visit Provider Internal Medicine Pulmonary Disease
DX: Z79.899 Other long term (current) drug therapy (principal)
CPT/HCPCS: 36415; 80076

== ENCOUNTER 2024-12-10 19:33 | Emergency (ER) | payer MEDICARE, SELFPAY ==
--- NOTE | 2024-12-10 19:37 | ECG_ITS ---
Test Date: 2024-12-10 20:30:20 Measurements Intervals [place] Rate: 110 P: 53 KS: 152 QRS: -6 QRSD: 85 T: 17 QT: 303 QTc: 411 Interpretive Statements SINUS TACHYCARDIA BASELINE ARTIFACT- III, AVL, AVF, V6 ABNORMAL ECG No previous ECG available for comparison Electronically Signed On 12-11-2024 07:05:19 CDT by Lester Denny D.O.
--- NOTE | 2024-12-10 19:38 | ED_ITS ---
HPI - Chest Pain General Stated Complaint: High Heart Rate/Trouble Breathing Source: patient Mode of arrival: ambulatory Limitations: no limitations History of Present Illness HPI narrative: 74 y/o male with hx interstitial lung disease, on 3L O2, presented for higher BPMs today. Says he monitors his O2 level with a pulse ox, and today his 'numbers have been all over.' Endorses Heart rate was up to the 130s, which is usually under 100. Also says O2 sat will be 70-90% which he says is normal for him.Endorses fatigue today. Also reports occasional dizziness and slight ache in the chest, which he says is normal. Denies palpitations, n/v/d/f/c. Related Data Home Medications ?Medication ?Instructions ?Recorded ?Confirmed ?Last Taken ?Type cetirizine 10 mg tablet 5 mg PO DAILY PRN Allergy Symptoms 07/19/19 11/15/24 05/07/21 History cholecalciferol (vitamin D3) 25 25 mcg PO DAILY 04/17/21 11/15/24 05/07/21 History mcg (1,000 unit) tablet (Vitamin D3) nintedanib 150 mg capsule 150 mg PO Q12H 09/22/21 11/15/24 Unknown History Allergies Allergy/AdvReac Type Severity Reaction Status Date / Time cat dander Allergy Other Verified 11/15/24 13:27 grass pollen Allergy Other Verified 11/15/24 13:27 Review of Systems Review of Systems: CONSTITUTIONAL: Denies body aches, fever, chills, or sweats. EYES: Denies visual changes, redness, or discharge. ENT: Denies rhinorrhea, congestion, sore throat, or otalgia. CARDIOVASCULAR: reports increased heart rate Denies chest pain, palpitations, or edema. RESPIRATORY: Reports cough, sob, wheezing. GASTROINTESTINAL: Denies abdominal pain, nausea, vomiting, or diarrhea. SKIN: Denies rash, itching, or wounds. MUSCULOSKELETAL: Denies back pain, joint pain, or myalgia. NEUROLOGIC: Denies headache, numbness, tingling, or weakness. All systems reviewed & are unremarkable except as noted in HPI and below PMFSH Past Medical History Medical History ILD (interstitial lung disease) Rosacea Allergic rhinitis Chronic GERD Essential (primary) hypertension HLD (hyperlipidemia) KRISTI (obstructive sleep apnea) Benign prostatic hyperplasia with lower urinary tract symptoms Family History Family History Father Family history of cardiovascular disease CHF (congestive heart failure) Mother Family history of cardiovascular disease Cerebrovascular accident Social History Social History Smoking status: Never smoker Second hand tobacco smoke exposure: No Alcohol intake: never Substance use: former Substance use type: does not use Living arrangements: with family Occupation/Education: occupation Gender identity (if verbalized by the patient): Male Sexual Orientation (if Verbalized by the Patient): Straight or Heterosexual Spiritual care concerns: No Comments At time of signature, I have reviewed and agree with nursing past medical, surgical, social and family history unless otherwise noted. Please see nursing chart for further information. There is no relevant family history pertinent to the presenting complaint Exam Narrative: GENERAL: chronically ill-appearing EYES: EOMI. No redness or drainage. Conjunctivae normal. ENT: Mucous membranes pink and moist. No rhinorrhea. TMs normal bilaterally. Throat normal. Uvula midline. NECK: Normal AROM. CHEST: Tachypnea, O2 3L per NC. Diminished bases. Speaks short sentences and uses pursed lip breathing, baseline per . HEART: Tachycardic and regular rhythm. EXTREMITIES: Normal range of motion. No edema. SKIN: Warm, dry, no rash. Capillary refill normal. Normal skin turgor. NEURO: Alert and oriented x3. Gait steady. PSYCH: Normal affect. Course Course Emergency Course: Patient is aware of diagnosis, understands and agrees to treatment plan. Anticipatory guidance given. Patient agrees to follow-up as directed and is aware of reasons to seek care at the emergency department. Portions of this record may have been created with voice recognition software Level of Care: Express Care Visit Transfer Transfered to: [place] Transportation: Other ( private vehicle) Transfer rationale: Pt is agreeable to transfer. Requests transfer to [facility] via private vehicle; declined ambulance. Risks of transportation reviewed with pt including injury, worsening of condition and . v/u. will be driving pt; Report called to hospital, spoke with Dr Villareal, accepting physician. Pt is in stable condition at time of transfer. Advised to remain NPO and go directly to the hospital. MDM - Chest Pain MDM Narrative Medical decision making narrative: Pt reporting increase in heart rate from baseline per his home pulse ox, with occasional dizziness and fatigue today. O2 sat 77-92 on arrival. O2 3L. EKG reviewed with pt, ST 110 Given his extensive pulmonary history, he is advised ER transfer. Cristian Aguayo. Differential Diagnosis Differential diagnosis: Likely pneumothorax, stable angina, unstable angina pectoris, atypical chest pain, costochondritis, chest pain and other (Angioedema, perforation, asthma, pneumonia, PE, tension pneumothorax, cardiac tamponade MT, pericarditis, pleural effusion, CHF, bronchitis, cardiac arrhythmia) ECG Data EKG #1: Attestation: I personally reviewed and interpreted this ECG as follows: (ST 110 VT 152, QRS 85, QT/ QTC 303/368) ECG completion date: 12/10/24 ECG completion time: 19:53 Prior ECG tracings: not available for review EKG Interpretation: tachycardia Discharge Plan Discharge Clinical Impression: Sinus tachycardia Patient Disposition: Acute Care Hospital Condition: Stable Patient Language: Nepali Prescriptions: No Action sertraline [Zoloft] 25 mg tablet 25 mg PO DAILY Qty: 30 0RF cholecalciferol (vitamin D3) [Vitamin D3] 25 mcg (1,000 unit) Tablet 25 mcg PO DAILY nintedanib 150 mg Capsule 150 mg PO Q12H cetirizine 10 mg tablet 5 mg PO DAILY PRN (Reason: Allergy Symptoms) azelastine 137 mcg (0.1 %) aerosol,spray See Rx Instructions .ROUTE .COMPLEX Qty: 30 2RF Dose Instruction: ADMINISTER 2 SPRAYS IN EACH NOSTRIL EVERY 12 HOURS Rx Instructions: ADMINISTER 2 SPRAYS IN EACH NOSTRIL EVERY 12 HOURS metronidazole 0.75 % cream 1 applic TOPICAL BID Qty: 45 5RF simvastatin 40 mg tablet 40 mg PO DAILY Qty: 90 2RF Rx Instructions: TAKE 1 TABLET BY MOUTH EVERY EVENING finasteride 5 mg tablet See Rx Instructions .ROUTE .COMPLEX Qty: 90 2RF Dose Instruction: TAKE 1 TABLET BY MOUTH DAILY Rx Instructions: TAKE 1 TABLET BY MOUTH DAILY losartan 50 mg tablet 50 mg PO DAILY Qty: 90 3RF Follow-up/Referrals: PHYSICIAN,POLYETHYLENE COMBINER [Primary Care Provider] - Time of Disposition: 20:03
[2024-12-10 19:40] VITALS: BP 113/74; PULSE 118; RESP 22; TEMP 36.8; O2SAT 95
== END 2024-12-10 20:11 | disposition short-term general hospital (02) ==
DX: R00.0 Tachycardia, unspecified (principal); J84.9 Interstitial pulmonary disease, unspecified; L71.9 Rosacea, unspecified; I10 Essential (primary) hypertension; E78.5 Hyperlipidemia, unspecified; K21.9 Gastro-esophageal reflux disease without esophagitis; N40.1 Benign prostatic hyperplasia with lower urinary tract symptoms; Z99.81 Dependence on supplemental oxygen
CPT/HCPCS: 93005; 93010; 99213; G0463

== ENCOUNTER 2024-12-10 20:18 | Emergency (ER) | payer MEDICARE, SELFPAY ==
[2024-12-10] VITALS (7 sets, daily range): BP systolic 112–124; BP diastolic 76–84; PULSE 88–108; RESP 21–33; TEMP 36.7; O2SAT 98–100
--- NOTE | ~2024-12-10 | XR_ITS ---
EXAMINATION: XR chest 2V Exam Date/Time: 12/10/2024 20:40 CDT HISTORY: palpitations Comparison: CT chest 05/26/2020. RESULT: Lines, tubes, and devices: None. Lungs and pleura: Diffuse reticular opacities. Low volumes. Mild diffuse ground glass opacities. Cardiomediastinal silhouette: Stable. Other: No acute osseous or upper abdominal finding. IMPRESSION: Severe chronic interstitial lung disease, overlying pulmonary edema or infection is difficult to excl ude. Reviewed, dictated and finalized at location K. IMPRESSION: Severe chronic interstitial lung disease, overlying pulmonary edema or infectio n is difficult to exclude.
--- OUTSIDE RECORDS SUMMARY | 2024-12-10 20:21 | XMS_ITS | Encounter Summary ---
Author Organization [facility] Address [address] [place] [address] Phone Care Team Providers Care Assistant Professor Of Archaeology Name Role Phone David Traore MD Primary Care Provider Candace Marsh MD Unavailable [phone] Nicolasa Pollard RN Unavailable More Kristine Street MD Unavailable Marie Edwards RN Unavailable [phone] Reyna Ramos MD Unavailable [phone] Encounter Details Date Type Department Care Team (Late st Contact Info) Description 12/10/[address] [facility] Pulmonary [address] [facility] 8th [place] [address] [place] [address] Cinthia Gimenez CPhT Social History Tobacco Use Types Packs/Day Years Used Date Smoking Tobacco: Never Smokeless Tobacco: Never AUDIT-C Answer Date Recorded Q1: How often do you have a drink containing alcohol? Never 10/21/2023 Q2: How many drinks containi ng alcohol do you have on a typical day when you are drinking? Patient does not drink Q3: How often do you have si x or more drinks on one occasion? Never 10/21/2023 Personal Safety Answer Date Recorded Have you ever been in or are you currently in a harmful physical or emotional relationship or is someone making you feel afraid or unsafe? Denies 10/21/2023 Sex and Gender Information Value Date Recorded Sex Assigned at Not on file Legal Sex Male 8:35 AM CDT Gender Identity Male 03/19/2021 11:44 AM CDT Sexual Orientation Straight 01/21/2021 12 :29 PM CDT documented as of this encounter Miscellaneous Notes * Telephone Encounter - Cinthia Gimenez CPhT - 12/10/2024 8:45 AM CDT Left VM sharing 03/05 testing and appt info w/ Dr. James. documented in this encounter Plan of Treatment Not on file documented as of this encounter Visit Diagnoses Not on filedocumented in this encounter Care Teams Assistant Professor Of Archaeology Relationship Specialty Start Date End Date David Traore MD [address] [place] [address] PCP - General Family Medicine 12/17/20 Candace Marsh MD [address] [place] [address] Consulting Physician Critical Care Med 01/27/21 Nicolasa Pollard, HEMA Registered Nurse Pulmonary Disease 06/11/22 Kristine Villareal MD Referring Physician Pulmonary Disease 11/02/23 Marie dEwards, RN [address] [facility] [address] [place] [address] Net Architect 11/02/23 Reyna Ramos MD [address] [place] [address] Consulting Physician Hospice and Palliative Medicine 11/17/23 documented as of this encounter
--- OUTSIDE RECORDS SUMMARY | 2024-12-10 20:21 | XMS_ITS | Encounter Summary ---
Author Organization [facility] Address [address] [place] [address] Phone Care Team Providers Care Gear And Spline Grinder Name Role Phone David Traore MD Primary Care Provider Candace Marsh MD Unavailable [phone] Nicolasa Pollard RN Unavailable More Kristine Street MD Unavailable [phone] Marie Edwards RN Unavailable [phone] Reyna Ramos MD Unavailable [phone] Encounter Details Date Type Department Care Team (Latest Contact Info) Description 09/15/2022 Orders Only [facility] Scanning, Provider Social History Tobacco Use Types Packs/Day Years Used Date Smoking Tobacco: Never Smokeless Tobacco: Never AUDIT-C Answer Date Recorded Q1: How often do you have a drink containing alc ohol? Never 02/25/2021 Average Number of Drinks Not on file 021 Q3: How often do you have si x or more drinks on one occasion? Never 02/25/2021 Sex and Gender Information Value Date Recorded Sex Assigned at Not on file Legal Sex Male 8:35 AM CDT Gender Identity Male 03/19/2021 11:44 AM CDT Sexual Orientation Straight 01/21/2021 12 :29 PM CDT documented as of this encounter Plan of Treatment Not on file documented as of this encounter Procedures Procedure Name Priority Date/Time Associated Diagnosis Comments PULMONARY - RESULT SCAN 08/02/2023 SCAN - LABS 09/15/2022 documented in this encounter Results * PULMONARY - RESULT SCAN (08/02/2023) Anatomical Region Laterality Modality Other us Provider Scanning Final Result * SCAN - LABS (09/15/2022) us Provider Scanning Final Result documented in this encounter Visit Diagnoses Not on filedocumented in this encounter Care Teams Gear And Spline Grinder Relationship Specialty Start Date End Date David Traore MD [address] [place] [address] PCP - General Family Medicine 12/17/20 Candace Marsh MD [address] [place] [address] Consulting Physician Critical Care Med 01/27/21 Nicolasa Pollard, HEMA Registered Nurse Pulmonary Disease 06/11/22 Kristine Villareal MD Referring Physician Pulmonary Disease 11/02/23 Marie Edwards, RN [address] [facility] [address] [place], [place] [id number] Mechanotherapist 11/02/23 Reyna Ramos MD [address] [place] [address] Consulting Physician Hospice and Palliative Medicine 11/17/23 documented as of this encounter
--- OUTSIDE RECORDS SUMMARY | 2024-12-10 20:21 | XMS_ITS | Encounter Summary ---
Author Organization [facility] Address [address] [place] [address] Phone Care Team Providers Care Rivers And Lakes Boatman Name Role Phone David Traore MD Primary Care Provider Candace Marsh MD Unavailable [phone] Nicolasa Pollard RN Unavailable More Kristine Street MD Unavailable [phone] Marie Edwards RN Unavailable [phone] Reyna Ramos MD Unavailable [phone] Encounter Details Date Type Department Care Team (Latest Contact Info) Description 01/16/2022 Orders Only [facility] Scanning, Provider [...] Procedure Name Priority Date/Time Associated Diagnosis Comments SCAN - LABS 01/16/2022 documented in this encounter Results * SCAN - LABS (01/16/2022) us Provider Scanning Final Result documented in this encounter Visit Diagnoses Not on filedocumented in this encounter Care Teams Rivers And Lakes Boatman Relationship Specialty Start Date End Date David Traore MD [address] [place] [address] PCP - General Family Medicine 12/17/20 Candace Marsh MD [address] [place], [place] [address] Consulting Physician Critical Care Med 01/27/21 Nicolasa Pollard, RN Registered Nurse Pulmonary Disease 06/11/22 Kristine Villareal MD Referring Physician Pulmonary Disease 11/02/23 Marie Edwards, RN [address] [facility] [address] [place], [place] [id number] Angiographer 11/02/23 Reyna Ramos MD [address] [place] [address] Consulting Physician Hospice and Palliative Medicine 11/17/23 documented as of this encounter
--- OUTSIDE RECORDS SUMMARY | 2024-12-10 20:21 | XMS_ITS | Clinical Summary ---
Author Organization [facility] Address [address] [facility] [place] [address] Care Team Providers Care Paediatric Thoracic Physician Name Role Phone David Traore MD Primary Care Provider [phone] Devon Mills MD Unavailable [phone] Source Comments [facility],non-owned Affiliates and Associated Physician Practices is amultiple site organization consisting of ambulatory clinics and hospital sitesin [place], [place], [place] and [place]. This disclosure is being madepursuant to the Care Everywhere program and may not contain all information available regarding this patient. Last updated 18.[facility] [employer] Allergies No known active allergies Immunizations Immunization Administration Dates Next Due INFLUENZA VACCINE, HIGH-DOSE , QUADR. (FLUZONE HIGH-DOSE QUADRIVALENT; 65Y+), 0.7 ML (HD-IIV4) 04/29/2020 INFLUENZA VACCINE, QUADR. (F LUZONE; FLULAVAL; FLUARIX; AFLURIA QUADRIVALENT; 6MO+), 0.5 ML (IIV4) 05/09/2017 Social History Tobacco Use Types Packs/Day Years Used Date Smoking Tobacco: Never Assessed Sex and Gender Information Value Date Recorded Sex Assigned at Not on file Legal Sex Male 2:36 PM CDT Gender Identity Not on file Sexual Orientation Not on file Plan of Treatment Health Maintenance Due Date Last Done Comments COLOGUARD (AGES 45-75) - COL ON CA SCREENING 1950 COLON MONITORING 1950 COLONOSCOPY - COLON CA SCREENING 1950 CT COLONOGRAPHY - COLON CA SCREENING 1950 Colorectal Cancer Screening 1950 FIT - COLON CA SCREENING 1950 FLEX SIG - COLON CA SCREENING 1950 LIPID TESTING 1950 HEPATITIS C SCREENING 12/31/1967 DTAP/TDAP/TD VACCINES (1 - Tdap) 1969 PNEUMOCOCCAL VACCINE 50+ (1 of 1 - PCV) 01/05/2000 ZOSTER VACCINE (1 of 2) 01/05/2000 COVID-19 VACCINE (1 - 2023-2 5 season) 2024 DEPRESSION SCREENING 07/11/2024 Respiratory Syncytial Virus (RSV) Vaccine Pt: or over 60 yrs (1 - 1-dose 75+ series) 2025 INFLUENZA VACCINE (Season Ended) 2025 04/29/2020, 05/09/2017 HEPATITIS B VACCINE Aged Out No longe r eligible based on patient's age to complete this topic HIB VACCINE Aged Out No longer eligi ble based on patient's age to complete this topic HPV VACCINE Aged Out No longer eligi ble based on patient's age to complete this topic MENINGOCOCCAL (Group B) VACCINE SHARED DECISION-MAKING Aged Out No longer eligible based on patient's age to complete this topic MENINGOCOCCAL GROUPS A/C/Y/W VACCINE Aged Out No longer eligible b ased on patient's age to complete this topic Insurance Care Teams Paediatric Thoracic Physician Relationship Specialty Start Date End Date David Traore MD [address] [id number] PCP - General 03/19/19 Devon Mills MD [address] [place] [address] Family Medicine 03/19/19
--- OUTSIDE RECORDS SUMMARY | 2024-12-10 20:21 | XMS_ITS | Encounter Summary ---
Author Organization [facility] Address [address] [place] [address] Phone Care Team Providers Care Community Nurse Name Role Phone David Traore MD Primary Care Provider Candace Marsh MD Unavailable [phone] Nicolasa Pollard RN Unavailable More Kristine Street MD Unavailable [phone] Marie Edwards RN Unavailable [phone] Reyna Ramos MD Unavailable [phone] Encounter Details Date Type Department Care Team (Latest Contact Info) Description 01/18/2024 Orders Only [facility] Scanning, Provider [...] Date/Time Associated Diagnosis Comments SCAN - LABS 01/18/2024 documented in this encounter Results * SCAN - LABS (01/18/2024) us Provider Scanning Final Result documented in this encounter Visit Diagnoses Not on filedocumented in this encounter Care Teams Community Nurse Relationship Specialty Start Date End Date David Traore MD [address] [place] [address] PCP - General Family Medicine 12/17/20 Candace Marsh MD [address] [place], [place] [address] Consulting Physician Critical Care Med 01/27/21 Nicolasa Pollard, HEMA Registered Nurse Pulmonary Disease 06/11/22 Kristine Villareal MD Referring Physician Pulmonary Disease 11/02/23 Marie Edwards, RN [address] [facility] [address] [place] [address] Lag Screwer 11/02/23 Reyna Ramos MD [address] [place] [address] Consulting Physician Hospice and Palliative Medicine 11/17/23 documented as of this encounter
--- OUTSIDE RECORDS SUMMARY | 2024-12-10 20:21 | XMS_ITS | Patient Health Record ---
Author Organization [facility] [place] ([address]) Address [address] [place] [address] Care Team Providers Care Centerless Grinding Machine Adjuster Name Role Phone David Traore MD Primary Care Provider Unavaila Adilene Vences Unavailable [phone] Devon Mills MD Unavailable Unavailable Juan Alberto Najera Unavailable [phone] [facility] Provider Unavailable Unavailab le Allergies No Known Allergies Reason For Referral No Information Medications Medication SIG (Take, Route, Frequency, Duration) Notes Start Date End Date Status Azelastine HCl 137 MCG/SPRAY 2 spray(s) intranasally 2 times a day for 90 days Active NASAL WASHES N/A DIRECTED INTRANASALLY NEEDED for 30 *Please review for potential replacement for e-prescription and drug interaction check* Active Cetirizine HCl 10 MG 1 tab(s) orally onc e a day for 30 day(s) Active PREDNISONE 10 mg 1 tab(s) orally once a day Active FINASTERIDE 5 mg 1 tab(s) orally once a day for 30 day(s) 06/06/2023 Active Fluticasone Propionate 50 MCG/ACT 1 spray(s) in each nostril twice a day for 30 days Active Losartan Potassium 50 MG 1 tab(s) orally once a day Active Ambien 10 MG 1 tab(s) orally Qday , PRN Active Lexapro 10 MG 1 tab(s) orally once a day Active Simvastatin 40 MG 1 tab(s) orally once a day (at bedtime) Active CETIRIZINE HYDROCHLORIDE 10 mg 1 tab(s) orally once a day for 30 day(s) Active AUVI -Q 0.3 mg 0.3 mg intramuscularly once for 1 dose(s) Active OFEV 150 mg 1 cap(s) orally ever y 12 hours Active FLUTICASONE NASAL 50 mcg/inh 1 spray(s) in each nostril twice a day for 30 days Active Auvi-Q 0.3 MG/0.3ML 0.3 mg intramuscularly once for 1 dose(s) Active SIT (TRADITIONAL) VARIABLE PER SCHEDULE PER SCHEDULE for 1 DAYS *Please review for potential replacement for e-prescription and drug interaction check* Active FLUTICASONE NASAL 50 mcg/inh 1 spray(s) in each nostril twice a day for 30 days Active Ofev 150 MG 1 cap(s) orally ever y 12 hours Active LOSARTAN 50 mg 1 tab(s) orally once a day Active predniSONE 10 MG 1 tab(s) orally once a day Active AMBIEN 10 mg 1 tab(s) orally Qday , PRN Active Finasteride 5 MG 1 tab(s) orally once a day for 30 day(s) 06/06/2023 Active LEXAPRO 10 mg 1 tab(s) orally once a day Active SIMVASTATIN 40 mg 1 tab(s) orally once a day (at bedtime) Active AZELASTINE NASAL 137 mcg/inh 2 spray(s) intranasally 2 times a day for 90 days Active Immunizations Vaccine Route Administration Date Status Comme nts Flucelvax Unknown 04/30/2019 Administered Influenza Unknown 04/18/2017 Administered NOC Fluzone Quadrivalent Unknown 09/04/2018 Refused Social History Tobacco Use: Social History Observation Description Date Details (start date - stop date) Never Smoker NA - NA Smoking Smart Form: Question Answer Notes Are you a: never smoker Tobacco Control (Standard) Question Answer Notes Tobacco use: Nonsmoker Problems Problem Type SNOMED Code ICD Code Onset Dates Problem Status W/U Status Risk Notes Problem Chronic allergic conjunctivitis (33788057) Other chronic allergic conjunctivitis (H10.45) Active confirmed Problem Vasomotor rhinitis (8215192) Vasomotor rhinitis (J30.0) Active confirmed Problem Allergic rhinitis caused by pollen (disorder) (85445423) Allergic rhinitis due to pollen (J30.1) Active confirmed Problem Allergic rhinitis (22593873) Other allergic rhinitis (J30.89) Active confirmed Problem Pulmonary fibrosis (69052169) Pulmonary fibrosis, unspecified (J84.10) Active confirmed Problem Cough (86210911) Cough (R05) Active confirmed Problem Allergic rhinitis caused by animal hair and dander (481488807274738) Allergic rhinitis due to animal (cat) (dog) hair and dander (J30.81) Active confirmed Problem Chronic sinusitis (03759988) Chronic sinusitis, unspecified (J32.9) Active confirmed Problem Essential hypertension (50733316) Essential (primary) hypertension (I10) Active confirmed Problem Gastro-esophageal reflux disease without esophagitis (361468933) Gastro-esophageal reflux disease without esophagitis (K21.9) Active confirmed Encounters Encounter Location Date Provider Diagnosis [address] [address] 12/24/2023 Provider [facility] Allergic rhinitis due to pollen J30.[address] [address] 01/09/2024 Juan Alberto Najera Allergic rhinitis du e to pollen J30.1 ; Other allergic rhinitis J30.89 ; Allergic rhinitis due to animal (cat) (dog) hair and dander J30.81 and Other chronic allergic conjunctivitis H10.[address] [address] 02/13/2024 Juan Alberto Najera Allergic rhinitis du e to pollen J30.1 ; Other allergic rhinitis J30.89 ; Allergic rhinitis due to animal (cat) (dog) hair and dander J30.81 and Other chronic allergic conjunctivitis H10.[address] [address] 03/15/2024 Juan Alberto Najera Allergic rhinitis du e to pollen J30.1 ; Other allergic rhinitis J30.89 ; Allergic rhinitis due to animal (cat) (dog) hair and dander J30.81 and Other chronic allergic conjunctivitis H10.[address] [address] 04/17/2024 Juan Alberto Najera Allergic rhinitis du e to pollen J30.1 ; Other allergic rhinitis J30.89 ; Allergic rhinitis due to animal (cat) (dog) hair and dander J30.81 and Other chronic allergic conjunctivitis H10.[address] [address] 05/24/2024 Juan Alberto Najera Allergic rhinitis du e to pollen J30.1 ; Other allergic rhinitis J30.89 ; Allergic rhinitis due to animal (cat) (dog) hair and dander J30.81 and Other chronic allergic conjunctivitis H10.[address] [address] 06/26/2024 Juan Alberto Najera Allergic rhinitis du e to pollen J30.1 ; Other allergic rhinitis J30.89 ; Allergic rhinitis due to animal (cat) (dog) hair and dander J30.81 and Other chronic allergic conjunctivitis H10.[address] [address] 08/02/2024 Juan Alberto Najera Allergic rhinitis du e to pollen J30.1 ; Other allergic rhinitis J30.89 ; Allergic rhinitis due to animal (cat) (dog) hair and dander J30.81 and Other chronic allergic conjunctivitis H10.[address] [address] 09/06/2024 Juan Alberto Najera Allergic rhinitis du e to pollen J30.1 ; Other allergic rhinitis J30.89 ; Allergic rhinitis due to animal (cat) (dog) hair and dander J30.81 and Other chronic allergic conjunctivitis H10.[address] [address] 10/09/2024 Juan Alberto Najera Allergic rhinitis du e to pollen J30.1 ; Other allergic rhinitis J30.89 ; Allergic rhinitis due to animal (cat) (dog) hair and dander J30.81 and Other chronic allergic conjunctivitis H10.[address] [address] 11/15/2024 Juan Alberto Najera Allergic rhinitis du e to pollen J30.1 ; Other allergic rhinitis J30.89 ; Allergic rhinitis due to animal (cat) (dog) hair and dander J30.81 and Other chronic allergic conjunctivitis H10.45 Assessments Encounter Date Diagnosis (ICD Code) Assessment Notes Treatment Notes Treatment Clinical Notes Section Notes 01/09/2024 Allergic rhinitis due to pollen (ICD-10 - J30.1) 02/13/2024 Allergic rhinitis due to pollen (ICD-10 - J30.1) 04/17/2024 Allergic rhinitis due to pollen (ICD-10 - J30.1) 05/24/2024 Allergic rhinitis due to pollen (ICD-10 - J30.1) 06/26/2024 Allergic rhinitis due to pollen (ICD-10 - J30.1) 08/02/2024 Allergic rhinitis due to pollen (ICD-10 - J30.1) 09/06/2024 Allergic rhinitis due to pollen (ICD-10 - J30.1) 11/15/2024 Allergic rhinitis due to pollen (ICD-10 - J30.1) 10/09/2024 Allergic rhinitis due to pollen (ICD-10 - J30.1) 03/15/2024 Allergic rhinitis due to pollen (ICD-10 - J30.1) 03/15/2024 Other allergic rhinitis (ICD-10 - J30.89) 10/09/2024 Other allergic rhinitis (ICD-10 - J30.89) 11/15/2024 Other allergic rhinitis (ICD-10 - J30.89) 09/06/2024 Other allergic rhinitis (ICD-10 - J30.89) 08/02/2024 Other allergic rhinitis (ICD-10 - J30.89) 06/26/2024 Other allergic rhinitis (ICD-10 - J30.89) 05/24/2024 Other allergic rhinitis (ICD-10 - J30.89) 04/17/2024 Other allergic rhinitis (ICD-10 - J30.89) 02/13/2024 Other allergic rhinitis (ICD-10 - J30.89) 01/09/2024 Other allergic rhinitis (ICD-10 - J30.89) 01/09/2024 Allergic rhinitis due to animal (cat) (dog) hair and dander (ICD-10 - J30.81) 02/13/2024 Allergic rhinitis due to animal (cat) (dog) hair and dander (ICD-10 - J30.81) 04/17/2024 Allergic rhinitis due to animal (cat) (dog) hair and dander (ICD-10 - J30.81) 05/24/2024 Allergic rhinitis due to animal (cat) (dog) hair and dander (ICD-10 - J30.81) 06/26/2024 Allergic rhinitis due to animal (cat) (dog) hair and dander (ICD-10 - J30.81) 08/02/2024 Allergic rhinitis due to animal (cat) (dog) hair and dander (ICD-10 - J30.81) 09/06/2024 Allergic rhinitis due to animal (cat) (dog) hair and dander (ICD-10 - J30.81) 11/15/2024 Allergic rhinitis due to animal (cat) (dog) hair and dander (ICD-10 - J30.81) 10/09/2024 Allergic rhinitis due to animal (cat) (dog) hair and dander (ICD-10 - J30.81) 03/15/2024 Allergic rhinitis due to animal (cat) (dog) hair and dander (ICD-10 - J30.81) 12/24/2023 Allergic rhinitis due to pollen (ICD-10 - J30.1) 03/15/2024 Other chronic allergic conjunctivitis (ICD-10 - H10.45) 10/09/2024 Other chronic allergic conjunctivitis (ICD-10 - H10.45) 11/15/2024 Other chronic allergic conjunctivitis (ICD-10 - H10.45) 09/06/2024 Other chronic allergic conjunctivitis (ICD-10 - H10.45) 08/02/2024 Other chronic allergic conjunctivitis (ICD-10 - H10.45) 06/26/2024 Other chronic allergic conjunctivitis (ICD-10 - H10.45) 05/24/2024 Other chronic allergic conjunctivitis (ICD-10 - H10.45) 04/17/2024 Other chronic allergic conjunctivitis (ICD-10 - H10.45) 02/13/2024 Other chronic allergic conjunctivitis (ICD-10 - H10.45) 01/09/2024 Other chronic allergic conjunctivitis (ICD-10 - H10.45) Plan Of Treatment No Information Insurance Providers Payer Name Payer Address Payer Phone Subscriber Number Group Number Insured Name Patient Relationship to Insured Coverage Start Date Coverage End Date [employer] [address] [place] [address] [id number] Anders Umaña Self - patient is the insured Medical (General) History Medical History History ICD Code Essential (primary) hypertension Insomnia, unspecified Pain in right knee Hyperlipidemia, unspecified Gastro-esophageal reflux disease without esophagitis Cough Allergic rhinitis due to pollen Allergic rhinitis due to animal (cat) (d og) hair and dander Other allergic rhinitis Other chronic allergic conjunctivitis Surgical History Surgery Date(Month/Year) Biopsy, Right Arm Skin Cancer Removal 2018 IPD 2017 Heart Cath 2023
--- OUTSIDE RECORDS SUMMARY | 2024-12-10 20:21 | XMS_ITS | Encounter Summary ---
Author Organization [facility] Address [address] [place] [address] Phone Care Team Providers Care Safety Instructor Name Role Phone David Traore MD Primary Care Provider Candace Marsh MD Unavailable [phone] Nicolasa Pollard RN Unavailable More roseyilaKristine Ag MD Unavailable [phone] Marie Edwards RN Unavailable [phone] Reyna Ramos MD Unavailable [phone] Encounter Details Date Type Department Care Team (Latest Contact Info) Description 12/07/2024 Results Follow-Up [facility] Pulmonary [address] [facility] Advanced Medicine 8th [place] [address] [place] [address] Kristine Villareal MD [address] [facility] [address] [place] [address] Comprehensive metabolic panel, CBC with auto differential, Differential, auto, eGFR Social History Tobacco Use Types Packs/Day Years [...] as of this encounter Miscellaneous Notes * Result Encounter Note - Kristine Villareal MD - 12/07/2024 4:48 PM CDT Your labs are stable. You can have them repeated in 6 months. documented in this encounter Plan of Treatment Not on file documented as of this encounter Visit Diagnoses Not on filedocumented in this encounter Care Teams Safety Instructor Relationship Specialty Start Date End Date David Traore MD [address] [place] [address] [address] [facility] [address] [place] [id number] PCP - General Family Medicine 12/17/20 Candace Marsh MD [address] [place] [address] [address] [facility] [address] [place] [address] Consulting Physician Critical Care Med 01/27/21 Nicolasa Pollard, HEMA Registered Nurse Pulmonary Disease 06/11/22 Kristine Villareal MD Referring Physician Pulmonary Disease 11/02/23 Marie Edwards, HEMA [address] [facility] [address] [place] [address] Cylinder Inspector And Tester 11/02/23 Reyna Ramos MD [address] [place] [address] Consulting Physician Hospice and Palliative Medicine 11/17/23 documented as of this encounter
--- NOTE | 2024-12-10 20:22 | ECG_ITS ---
Rate Rate: 104 QTc: 428 ME: 149 P: 38 QRSd: 86 QRS: -13 QT: 325 T: 7 Severity: No Severity Defined SINUS TACHYCARDIA POSSIBLE LEFT ATRIAL ENLARGEMENT BORDERLINE T WAVE ABNORMALITY- INFERIOR LEADS BASELINE ARTIFACT- I, II, III BORDERLINE ECG Electronically Signed On 12-10-2024 20:38:33 CDT by Lester Denny D.O. No previous ECG available for comparison Severity No Severity Defined
--- OUTSIDE RECORDS SUMMARY | 2024-12-10 20:22 | XMS_ITS | Referral Summary ---
Author Organization [facility] Address [address] [place] [address] Care Team Providers Care Road Roller Operator Hot Mix Name Role Phone David Traore MD Primary Care Provider Candace Marsh MD Unavailable [phone] Nicolasa Pollard RN Unavailable More roseyilable Kristine Villareal MD Unavailable [phone] Marie Edwards RN Unavailable [phone] Reyna Ramos MD Unavailable [phone] Encounters Date Type Department Care Team Description 12/10/2024 Telephone [facility] [address] [facility] 8th [place] [address] [place] [address] Cinthia Gimenez CPhT 12/07/2024 Results Follow-Up [facility] [address] [facility] 8th [place] [address] [place] [address] Kristine Villareal MD Comprehensive metabolic panel, CBC with auto differential, Differential, auto, eGFR 12/06/2024 Telephone [facility] [address] [facility] 8th [place] [address] [place] [address] Fernanda Castañeda RN 12/05/2024 3:05 PM CDT Lab [facility] [address] [place] [address] Interstitial lung disease (HCC); Epistaxis 12/05/2024 2:30 PM CDT Office Visit [facility] 8th [place] [address] [place] [address] Raisa Hutchison NP Interstitial lung disease (HCC) (Primary Dx); Epistaxis; Acute sinusitis, recurrence not specified, unspecified location; KRISTI (obstructive sleep apnea); Supplemental oxygen dependent; Environmental allergies; Immunization counseling 12/05/2024 1:11 PM CDT - 12/05/2024 11:59 PM CDT Hospital Encounter [facility] [address] [facility] [address] [place] [address] Interstitial lung disease (HCC) Discharge Disposition: Discharge to home or self care 11/30/2024 Telephone [facility] [address] [place] [address] [place] [address] [place] [address] Nicolasa Pollard, HEMA 11/30/2024 Telephone [facility] [address] [place] [address] [place] [address] [place] [address] Nicolasa Pollard, HEMA 11/23/2024 Orders Only [facility] [address] [place] [address] [place] [address] [place] [address] Linda James MD Interstitial lung disease (HCC) (Primary Dx) 11/22/2024 Telephone [facility] [address] [place] [address] [place] [address] [place] [address] Nicolasa Pollard, RN 11/02/2024 Telephone [facility] 8th [place] [address] [place] [address] Nicolasa Pollard, RN 10/31/2024 1:30 PM CDT Office Visit [facility] [address] [place] [address] [place] [address] Ofelia Isaac MD Chronic sinusitis, unspecified location 10/30/2024 Telephone [facility] [address] [place] [address] [place] [address] Kacie Osuna 10/01/2024 Telephone [facility] [address] [facility] 8[address] [place] [address] [place] [address] Nicolasa Pollard RN from Last 3 Months Allergies Active Allergy Reactions Criticality Noted Date Comments Cat/Feline Products Unknown 01/27/2021 Grass Pollen Unknown 01/27/2021 Medications simvastatin (ZOCOR) 40 mg tabletIndications :hyperlipidemia Take 1 tablet (40 mg total) by mouth nightly 12/23/19 21 Active cetirizine (ZyrTEC) 10 mg tabletIndications :Allergic Conjunctivitis Take 1 tablet (10 mg total) by mouth every morning 12/07/19 21 Active losartan (COZAAR) 50 mg tabletIndications :hypertension Take 1 tablet (50 mg total) by mouth every morning 11/19/19 21 Active azelastine (ASTELIN) 137 mcg (0.1 %) nasal spray Administer into each nostril 2 (two) times a day 12/31/19 21 Active UNABLE TO FIND Inject 1 each as directed every 30 (thirty) days Med Name: Allergy shot Active cholecalciferol, vitamin D3, (VITAMIN D3 ORAL) Take 1 tablet by mouth every morning Active miscellaneous medical supply misc Oxygen 2 liters on exertion Active finasteride (PROSCAR) 5 mg tablet Take 1 tablet (5 mg total) by mouth daily 03/13/20 21 Active EPINEPHrine (Auvi-Q) 0.3 mg/0.3 mL auto-injection syringe Active metroNIDAZOLE (METROCREAM) 0.75 % cream APPLY TOPICALLY TO THE AFFECTED AREA TWICE DAILY 04/11/20 23 Active tacrolimus (PROTOPIC) 0.1 % ointment APPLY TOPICALLY TO RASH AREAS ON FACE ONCE A DAY NEEDED FOR FLARES 02/29/20 24 Active treprostiniL (Tyvaso DPI) 64 mcg per inhalation cartridgeIndicati ons: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 120 capsule 1 10/02/19 25 Active budesonide (PULMICORT) 1 mg/2 mL nebulizer solution Mix 1 vial in 8oz of saline and instill 4oz of saline/steroi d solution into each nare twice daily 120 mL 11 11/01/19 25 Active sertraline (ZOLOFT) 25 mg tablet Take 1 tablet (25 mg total) by mouth daily 11/16/19 25 Active azithromycin (ZITHROMAX) 250 mg tablet Take 2 by mouth today then 1 daily for 4 days 6 tablet 12/06/19 25 2024 Active predniSONE (DELTASONE) 10 mg tablet Take 4 tabs (40mg) daily for 3 days, then 3 tabs (30mg) daily for 3 days, 2 tabs (20mg) daily for 3 days, 1 tab (10 mg) daily for 3 days. 30 tablet 12/06/19 25 2024 Active fluticasone propionate (FLONASE) 50 mcg/actuation nasal spray Administer 1 spray into each nostril daily 2024 Discontinued ipratropium (ATROVENT) 21 mcg (0.03 %) nasal spray Administer 2 sprays into each nostril 3 (three) times a day 30 mL 3 07/07/20 23 2024 Discontinued busPIRone (BUSPAR) 5 mg tablet 10/31/19 25 2024 Discontinued Active Problems Patient Care Coordination No te Formatting of this note migh t be different from the original. Referring provider: Dr. Marsh Mr. Anders Umaña is a 71-year-old with interstitial lung disease. He currently uses oxygen with exertion and exercise. He gets short of breath during short walks. He also has had a chronic cough for about the last 15 years. He is a never smoker. On 05/26/2020 the patient underwent a chest CT which demonstrated interval progression of peripheral and lower lung predominant usual interstitial pneumonia pattern chronic interstitial lung disease. On 10/16/2020 the patient underwent pulmonary function testing which showed an FEV1 of 51% of predicted and a DLCO of 42% of predicted. Patient is being referred for possible VATS biopsy. Patient presents today for further surgical evaluation. Review of systems: Respiratory: Positive for shortness of breath with exertion and cough. All other systems reviewed and are negative. Problem Noted Date Diagnosed Date Chronic sinusitis 12/05/2024 Gastro-esophageal reflux disease without esophag itis 12/05/2024 Acute hypoxemic respiratory failure 09/04/2024 Other hyperlipidemia 11/17/2023 KRISTI (obstructive sleep apnea) 11/17/2023 Essential hypertension 11/17/2023 Pulmonary hypertension 07/18/2023 Interstitial lung disease 12/14/2021 COVID-19 12/14/2021 Lung nodule 01/27/2021 Overview (01/27/2021): Added automatically from request for surgery [id number] Resolved Problems Problem Noted Date Diagnosed Date Resolved Date Allergic rhinitis 12/05/2024 12/05/2024 Allergic rhinitis due to ani mal hair and dander 12/05/2024 12/05/2024 Allergic rhinitis due to pollen 12/05/2024 12/05/2024 Chronic allergic conjunctivitis 12/05/2024 12/05/2024 Cough 12/05/2024 12/05/2024 Vasomotor rhinitis 12/05/2024 Essential (primary) hypertension 12/05/2024 12/05/2024 Pulmonary fibrosis 12/05/2024 IPF (idiopathic pulmonary fibrosis) 10/19/2023 02/16/2024 SOB (shortness of breath) on exertion 09/24/2023 09/04/2024 Other chest pain 09/23/2023 09/04/2024 ILD (interstitial lung disease) 02/16/2024 Immunizations Immunization Administration Dates Next Due Influenza, Quadrivalent, Marlena l Culture-based MDCK, Antibiotic Free, Intramuscular 04/30/2019 Influenza, Quadrivalent, Hig h Dose, Preservative Free, Intrr 03/26/2023,04/09/2022,04/12/2021,04/29 Influenza, Quadrivalent, Spl it, Preservative Free, Intramuscular 04/20/2018,05/09/2017 Influenza, Trivalent, High D ose, Split, Preservative Free, Intramuscular 03/11/2024,04/17/2015 Influenza, Trivalent, IM (MDV) 04/10/2019,2016,05/14/2014 Pneumococcal Polysaccharide PPV23 05/15/2021 RSV Vaccine, Pref, Recombina nt, Subunit, Adjuvanted, PF, IM (Arexvy) 03/26/2023 Tdap 04/02/2023 ZOSTER Recombinant 06/27/2022,04/16/2022 Social History Tobacco Use Types Packs/Day Years Used Date Smoking Tobacco: Never Smokeless Tobacco: Never Tobacco Cessation:Counseling Given: Not Answered AUDIT-C Answer Date Recorded Q1: How often [...] Orientation Straight 01/21/2021 12 :29 PM CDT Last Filed Vital Signs Vital Sign Reading Time Taken Comments Blood Pressure 126/87 12/05/2024 2:18 PM CDT Pulse 109 12/05/2024 2:18 PM CDT Temperature 36.5 C (97.7 F) 12/05/2024 2:18 PM CDT Respiratory Rate 20 12/05/2024 2:18 PM CDT Oxygen Saturation 93% 12/05/2024 2:18 PM CDT 3 liters o2 Inhaled Oxygen Concentration - - Weight 64 kg (141 lb) 12/05/2024 2:18 PM CDT Height 177.8 cm (5' 10) 12/05/2024 2:18 PM CDT Body Mass Index 20.23 12/05/2024 2:18 PM CDT Plan of Treatment Not on file Procedures Procedure Name Priority Date/Time Associated Diagnosis Comments EGFR Routine 12/05/2024 3:09 PM CDT Interstitial lung disease (HCC) DIFFERENTIAL AUTO Routine 12/05/2024 3:0 9 PM CDT Interstitial lung disease (HCC) CBC WITH AUTO DIFFERENTIAL Routine 12/05/2024 3:09 PM CDT Interstitial lung disease (HCC) COMPREHENSIVE METABOLIC PANEL Routine 12/05/2024 3:09 PM CDT Interstitial lung disease (HCC) PULMONARY FUNCTION TEST (PFT) Routine 12/05/2024 2:04 PM CDT Interstitial lung disease (HCC) from Last 3 Months Results * eGFR (12/05/2024 3:09 PM CDT) eGFR >90 >=60 mL/min/1. 73 m2 Comment: Interpretive Data Reference Interval Normal >/= 90 mL/min/1.73m2 Mildly decreased* 60 - 89 mL/min/1.73m2 Mildly to moderately decreased 45 - 59 mL/min/1.73m2 Moderately to severely decreased 30 - 44 mL/min/1.73m2 Severely decreased 15 - 29 mL/min/1.73m2 Kidney Failure < 15 mL/min/1.73m2 *Relative to young adult level Estimated glomerular filtration rate is determined by the 2020 CKD-EPI equation recommended by the National Kidney Foundation (A Unifying Approach to GFR Estimation: Recommendations of the NKF-ASK Task Force on Reassessing the Inclusion of Race in Diagnosing Kidney Disease, JASN 2020). The CKD-EPI equation should not be used for patients with unstable renal function and has not been validated in children and those over 70. Current interpretive data was last reviewed 2021. Blood 12/05/2024 3:09 PM CDT 12/05/2024 3:29 PM CDT us Raisa Hutchison NP LAB BLOOD ORDERABLES Chrissy rush Result [facility] Department of Laboratories [place], [place] [address] * (ABNORMAL) Differential, auto (12/05/2024 3:09 PM CDT) Neutrophil abs 9.69(H) 1.50 - 6.50 K/cumm Imm gran abs 0.03 0.00 - 0.10 K/cumm [facility] Lymphocyte abs 1.23 0.80 - 3.30 K/cumm [facility] Monocyte abs 0.56 0.20 - 0.80 K/cumm [facility] Eosinophil abs 0.11 0.00 - 0.50 K/cumm [facility] Basophil abs 0.04 0.00 - 0.10 K/cumm [facility] Neutrophil pct 83.2 % [facility] Comment: Interpretive Data Percent cell count reference ranges are not reported, since discordance with absolute values may lead to misinterpretation of CBC data. Current Interpretive Data was last revised on 2017. Imm gran pct 0.3 % [facility] Comment: Interpretive Data Percent cell count reference ranges are not reported, since discordance with absolute values may lead to misinterpretation of CBC data. Current Interpretive Data was last revised on 2017. Lymphocyte pct 10.5 % [facility] Comment: Interpretive Data Percent cell count reference ranges are not reported, since discordance with absolute values may lead to misinterpretation of CBC data. Current Interpretive Data was last revised on 2017. Monocyte pct 4.8 % [facility] Comment: Interpretive Data Percent cell count reference ranges are not reported, since discordance with absolute values may lead to misinterpretation of CBC data. Current Interpretive Data was last revised on 2017. Eosinophil pct 0.9 % [facility] Comment: Interpretive Data Percent cell count reference ranges are not reported, since discordance with absolute values may lead to misinterpretation of CBC data. Current Interpretive Data was last revised on 2017. Basophil pct 0.3 % [facility] Comment: Interpretive Data Percent cell count reference ranges are not reported, since discordance with absolute values may lead to misinterpretation of CBC data. Current Interpretive Data was last revised on 2017. Blood 12/05/2024 3:09 PM CDT 12/05/2024 3:24 PM CDT Raisa Hutchison CRIME DATA SPECIALIST LAB BLOOD ORDERABLES Chrissy l Result Performing Organization Address [facility]/ZIP Co de Phone Number [facility] Department [place] [address] * (ABNORMAL) CBC with auto differential (12/05/2024 3:09 PM CDT) Pathologist [facility] WBC 11.66(H) 3.80 - 9.90 K/cumm Hgb 14.4 13.0 - 17.5 g/dL [facility] Hct 44.0 38.9 - 50.3 % [facility] Plt 266 150 - 400 K/cumm [facility] MPV 10.8 9.1 - 12.3 fL [facility] RBC 4.70 4.30 - 5.80 M/cumm [facility] MCV 93.6 81.3 - 96.4 fL [facility] MCH 30.6 27.1 - 33.3 pg [facility] MCHC 32.7 32.3 - 35.7 g/dL [facility] RDW CV 13.9 11.1 - 14.9 % [facility] RDW SD 47.1 35.7 - 48.1 fL [facility] NRBC abs 0.00 0.00 - 0.01 K/cumm [facility] Blood 12/05/2024 3:09 PM CDT 12/05/2024 3:24 PM CDT Raisa Hutchison CRIME DATA SPECIALIST LAB BLOOD ORDERABLES Chrissy l Result [facility] Department [place] [address] * (ABNORMAL) Comprehensive metabolic panel (12/05/2024 3:09 PM CDT) Pathologist [facility] Sodium 140 135 - 145 mmol/L Potassium, pl 4.3 3.3 - 4.9 mmol/L [facility] Chloride 100 97 - 110 mmol/L [facility] CO2 34(H) 22 - 32 mmol/L [facility] Anion gap 6 2 - 15 mmol/L [facility] BUN 26(H) 6 - 25 mg/dL [facility] Creatinine 0.76(L) 0.80 - 1.30 mg/dL [facility] Glucose 95 70 - 199 mg/dL [facility] Comment: Interpretive Data Fasting glucose >/= 126 mg/dl is diagnostic for diabetes. Fasting is defined as no caloric intake for at least 8 hours. Fasting glucose between 100 mg/dl to 125 mg/dl is diagnostic of prediabetes. In a patient with classic symptoms of hyperglycemia or hyperglycemic crisis, a random glucose >/= 200 mg/dl is diagnostic for diabetes. In the absence of unequivocal hyperglycemia, results should be confirmed by repeat testing. The classification and Diagnosis of Diabetes Diabetes Care 202; 46: S19-S40. Current interpretive data was last revised 2022. Calcium 9.6 8.5 - 10.3 mg/dL [facility] Bilirubin, total 0.4 0.1 - 1.2 mg/dL [facility] Protein, pl 7.1 6.5 - 8.5 g/dL [facility] Albumin 4.0 3.5 - 5.0 g/dL [facility] Alk phos 68 40 - 130 Units/L [facility] ALT 17 7 - 55 Units/L [facility] AST 30 10 - 50 Units/L [facility] Blood 12/05/2024 3:09 PM CDT 12/05/2024 3:24 PM CDT Raisa Hutchison CRIME DATA SPECIALIST LAB BLOOD ORDERABLES Chrissy l Result [facility] Department [place] [address] * Pulmonary Function Test - (12/05/2024 2:04 PM CDT) FVC PRE 1.75 L [facility] FVC %PRE PRED 44 % [facility] FEV1 PRE 1.36 L [facility] FEV1 %PRE PRED 46 % [facility] FEV1/FVC PRE 77.8 % [facility] Anatomical Region Laterality Modality PFT 12/05/2024 1:26 PM CDT Narrative 12/05/2024 3:10 PM CDT Table formatting from the original result was not included. [facility] Division of Pulmonary & Critical Care Medicine [address] [place] [address]; [place] [address]; [place] [address]; [phone] Pulmonary Function Laboratory Pulmonary Stress Test Simple/Oxygen Assessment Patient: Anders Umaña Date: 12/05/2024 : 1950 Ht: 70 IN Wt: 141 LBS Time (min) Distance (ft)/ Schmidt O2 L/M SpO2 HR Monik* BP FEV1 % Pred Rest: RA 93 114 2 147/110 1.36 46 % Walk/Bike: 1 RA/3 86/91 127/123 2 2 3 93 123 2 3 3/4 88/91 122/122 2 4 4 90 122 2 5 4 90 120 2 6 min 0 sec 4 90 125 3 Recovery: 1 4 93 115 2 138/89 1.32 45% 3 2 95 115 2 *Monik rate of perceived exertion (1-10 dyspnea scale) Amador, CHEST 2003; 123:1408 Walk Test Summary: Six Minute Walk Distance: 375 ft Six-minute Walk Work [distance (m) x body wt (kg)]: 7296 kg.m (normal >60,000kg.m) Oxygen required to maintain SpO2 greater than 90% during six minutes of walkin L/M Comments: O2A Interpretation: Breathing room air, SpO2 is adequate at rest and during exercise sufficient to increase pulse, SpO2 falls to hypoxemic levels. On this basis, SpO2 is adequate at rest breathing room air and while walking breathing supplemental O2 at 4 L/min. This level of exercise is associated with no significant change of FEV1. By signing this report, the attending pulmonary physician certifies that he/she has personally reviewed and interpreted the graphic and numerical data associated with this pulmonary function study and has reviewed and /or edited a preliminary draft report and agrees with the written final report. PFT performed at:->[facility] PFT [facility]- [email or web address] Procedure:->Oxygen Assessment Titration Procedure:->Spirometry Pulmonary Function Test Interpretation SPIROMETRY: There is a decrease in expiratory airflow at middle and low lung volumes. The FEV1 and FVC are reduced in a pattern suggestive of a restrictive abnormality. The inspiratory loop is appropriate for the expiratory flow abnormality. Impression: There is a severe restrictive ventilatory defect. However, measurement of lung volumes is suggested to confirm this if clinically indicated. Compared with most recent study, there has been no significant interval change. The attending pulmonary physician certifies a physician presence in the [facility] Suite during the administration of aerosolized bronchodilator. The attending pulmonary physician certifies that he/she has reviewed and interpreted the graphic and numerical data of this pulmonary function study and agrees with the written final report. The lower limit of normal for PaO2 and %HbO2 is age dependent. However, the [facility] defines hypoxemia as a PaO2 <56 mm Hg or a %HbO2 <89%. Starting on July of 2024 the [facility] Function Laboratory utilizes race neutral GLI Global normative equations. Linda James MD PFT ORDERABLES Final Res ult from Last 3 Months Insurance [employer] [facility]IC[facility] MEDICARE UHC MEDICARE ADVANTAGE [facility] MEDICARE Advance Directives For more information, please contact: [phone] * Full Code (Latest Code Status on File) Date Activated Date Inactivated Comments 10/21/2023 12:42 PM 10/21/2023 5:26 PM * Full Code Date Activated Date Inactivated Comments 02/25/2021 5:23 PM 02/26/2021 4:[address] Roller Operator Hot Mix Relationship Specialty Start Date End Date David Traore MD [address] [place] [address] PCP - General Family Medicine 12/17/20 Candace Marsh MD [address] [place] [address] Consulting Physician Critical Care Med 01/27/21 Nicolasa Pollard, HEMA Registered Nurse Pulmonary Disease 06/11/22 Kristine Villareal MD Referring Physician Pulmonary Disease 11/02/23 Marie Edwards, RN [address] [facility] [address] [place] [address] Group Art Supervisor 11/02/23 Reyna Ramos MD [address] [place] [address] Consulting Physician Hospice and Palliative Medicine 11/17/23
--- OUTSIDE RECORDS SUMMARY | 2024-12-10 20:22 | XMS_ITS | Clinical Summary ---
Author Organization [facility] Address [facility] [place] [address] Care Team Providers Care Manager Web Name Role Phone David Traore MD Primary Care Provider Candace Marsh MD Unavailable [phone] Nicolasa Pollard RN Unavailable More Kristine Street MD Unavailable [phone] Marie Edwards RN Unavailable [phone] Reyna Ramos MD Unavailable [phone] Allergies Active Allergy Reactions Criticality Noted Date [...] 2024 Discontinued busPIRone (BUSPAR) 5 mg tablet 10/31/192024 Discontinued Active Problems Patient Care Coordination No [...] (01/27/2021): Added automatically from request for surgery [id number] Resolved Problems Problem Noted Date Diagnosed Date [...] 09/23/2023 09/04/2024 ILD (interstitial lung disease) 02/16/2024 Encounters Date Type Department Care Team Description 12/10/2024 Telephone [facility] [facility] 8th [place] [address] Cinthia Gimenez CPhT 12/07/2024 Results Follow-Up [facility] [address] [place] [phone] Kristine Villareal MD Comprehensive metabolic panel, CBC with auto differential, Differential, auto, eGFR 12/06/2024 Telephone [facility] [address] [place] [address] [place] [address] Fernanda Castañeda RN 12/05/2024 3:05 PM CDT Lab [facility] ([facility]) [address] [place], [place] [phone] Interstitial lung disease (HCC); Epistaxis 12/05/2024 2:30 PM CDT Office Visit [facility] [address] [place] [address] [place] [address] Raisa Hutchison NP Interstitial lung disease (HCC) (Primary Dx); Epistaxis; Acute sinusitis, recurrence not specified, unspecified location; KRISTI (obstructive sleep apnea); Supplemental oxygen dependent; Environmental allergies; Immunization counseling 12/05/2024 1:11 PM CDT - 12/05/2024 11:59 PM CDT Hospital Encounter [facility] [address] [place] [phone] Interstitial lung disease (HCC) Discharge Disposition: Discharge to home or self care 11/30/2024 Telephone [facility] [address] [place] [address] [place] [address] Nicolasa Pollard RN 11/30/2024 Telephone [facility] [address] [facility] 8th [place] [address] Nicolasa Pollard, HEMA 11/23/2024 Orders Only [facility] [address] [facility] 8th [place] [address] [place] [address] Linda James MD Interstitial lung disease (HCC) (Primary Dx) 11/22/2024 Telephone [facility] [address] [facility] 8th [place] [address] [place] [address] Nicolasa Pollard, RN 11/02/2024 Telephone [facility] 8th [place] [address] [place] [address] Nicolasa Pollard, HEMA 10/31/2024 1:30 PM CDT Office Visit [facility] [address] [facility] [address] [place] [phone] Ofelia Isaac MD Chronic sinusitis, unspecified location 10/30/2024 Telephone [facility] [address] [place] [address] Kacie Osuna 10/01/2024 Telephone [facility] 8th [place] [address] [place] [address] Nicolasa Pollard, RN from Last 3 Months Immunizations Immunization Administration Dates Next Due Influenza, [...] (Arexvy) 03/26/2023 Tdap 04/02/2023 ZOSTER Recombinant 06/27/2022,04/16/2022 Surgical History Surgery Date Site/Laterality Comments COLONOSCOPY PERCUTANEOUS NEEDLE BIOPSY LUNG RIGHT SKIN BIOPSY Medical History Medical History Date Comments HTN (hypertension) HLD (hyperlipidemia) ILD (interstitial lung disease) (HCC) KRISTI (obstructive sleep apnea) Covid-19 12/2021 Other chest pain 09/23/2023 SOB (shortness of breath) on exertion 09/24/2023 Essential (primary) hypertension 12/05/2024 Cough 12/05/2024 Allergic rhinitis 12/05/2024 Allergic rhinitis due to pollen 12/05/2024 Chronic allergic conjunctivitis 12/05/2024 Allergic rhinitis due to animal hair and dander 12/05/2024 Family History Medical History Relation Name Comments MVA Brother Chay Heart failure Father Other Father Heart disease Mother Heart failure Mother Anesthesia problems Neg Hx Relation Name Status Comments Brother Chay Father Mother Social History Tobacco Use Types Packs/Day Years [...] Orientation Straight 01/21/2021 12 :29 PM CDT Obstetrics History Last Filed Vital Signs Vital Sign Reading [...] 12/05/2024 2:18 PM CDT Plan of Treatment Health Maintenance Due Date Last Done Comments Colon Cancer Screening-Colonoscopy 1950 Depression Screening 1950 Hepatitis C Screening 1950 Hepatitis B Screening 01/05/1968 Well Visit 65+ 2015 Pneumococcal vaccine 65+ (2 of 2 - PCV) 05/15/2022 05/15/2021 Covid-19 Vaccine (2023-2 5 season) 2024 03/11/2024, 04/02/2023, 11/03/2022, Additional history exists Fall Risk Assessment 10/20/2024 10/21/2023, 12/16/19 22 DTaP/Tdap/Td Vaccine (2 - Td or Tdap) 04/02/2033 04/02/2023 Zoster Vaccine Completed 06/27/2022, 04/16/2022 Influenza Vaccine Completed 03/11/2024, , 04/09/2022, Additional history exists Procedures Procedure Name Priority Date/Time Associated Diagnosis [...] Results * eGFR (12/05/2024 3:09 PM CDT) Pathologist [facility] eGFR >90 >=60 mL/min/1. 73 m2 Comment: [...] Raisa Hutchison NP LAB BLOOD ORDERABLES Chrissy beverly Result [facility] Department [place] [address] * (ABNORMAL) Differential, auto (12/05/2024 3:09 PM CDT) Pathologist [facility] Neutrophil abs 9.69(H) 1.50 - 6.50 K/cumm Imm gran abs 0.03 0.00 - 0.10 K/cumm [facility] Lymphocyte abs 1.23 0.80 - 3.30 K/cumm [facility] Monocyte abs 0.56 0.20 - 0.80 K/cumm [facility] Eosinophil abs 0.11 0.00 - 0.50 K/cumm [facility] Basophil abs 0.04 0.00 - 0.10 K/cumm [facility] Neutrophil pct 83.2 % [facility] [place] Comment: Interpretive Data Percent cell count reference ranges are not reported, since discordance with absolute values may lead to misinterpretation of CBC data. Current Interpretive Data was last revised on 2017. Imm gran pct 0.3 % [facility] Comment: Interpretive Data Percent cell count reference ranges are not reported, since discordance with absolute values may lead to misinterpretation of CBC data. Current Interpretive Data was last revised on 2017. Lymphocyte pct 10.5 % [facility] Comment: Interpretive Data Percent cell count reference ranges are not reported, since discordance with absolute values may lead to misinterpretation of CBC data. Current Interpretive Data was last revised on 2017. Monocyte pct 4.8 % [facility] Comment: Interpretive Data Percent cell count reference ranges are not reported, since discordance with absolute values may lead to misinterpretation of CBC data. Current Interpretive Data was last revised on 2017. Eosinophil pct 0.9 % [facility] Comment: Interpretive Data Percent cell count reference ranges are not reported, since discordance with absolute values may lead to misinterpretation of CBC data. Current Interpretive Data was last revised on 2017. Basophil pct 0.3 % [facility] Comment: Interpretive Data Percent cell count reference ranges are not reported, since discordance with absolute values may lead to misinterpretation of CBC data. Current Interpretive Data was last revised on 2017. Blood 12/05/2024 3:09 PM CDT 12/05/2024 3:24 PM CDT us Raisa Hutchison NP LAB BLOOD ORDERABLES Chrissy beverly Result [facility] Department [place] [address] * (ABNORMAL) CBC with auto differential (12/05/2024 3:09 PM CDT) WBC 11.66(H) 3.80 - 9.90 K/cumm Hgb 14.4 13.0 - 17.5 g/dL [facility] Hct 44.0 38.9 - 50.3 % [facility] Plt 266 150 - 400 K/cumm [facility] MPV 10.8 9.1 - 12.3 fL [facility] RBC 4.70 4.30 - 5.80 M/cumm [facility] MCV 93.6 81.3 - 96.4 fL [facility] MCH 30.6 27.1 - 33.3 pg [facility] MCHC 32.7 32.3 - 35.7 g/dL [facility] RDW CV 13.9 11.1 - 14.9 % [facility] RDW SD 47.1 35.7 - 48.1 fL [facility] NRBC abs 0.00 0.00 - 0.01 K/cumm [facility] Blood 12/05/2024 3:09 PM CDT 12/05/2024 3:24 PM CDT Raisa Hutchison NP LAB BLOOD ORDERABLES Chrissy l Result [facility] Department [place] [address] * (ABNORMAL) Comprehensive metabolic panel (12/05/2024 3:09 PM CDT) Sodium 140 135 - 145 mmol/L Potassium, pl 4.3 3.3 - 4.9 mmol/L [facility] Chloride 100 97 - 110 mmol/L [facility] CO2 34(H) 22 - 32 mmol/L [facility] Anion gap 6 2 - 15 mmol/L [facility] BUN 26(H) 6 - 25 mg/dL [facility] Creatinine 0.76(L) 0.80 - 1.30 mg/dL [facility] Glucose 95 70 - 199 mg/dL [facility] Comment: Interpretive Data Fasting glucose >/= [...] classification and Diagnosis of Diabetes Diabetes Care 2021; 46: S19-S40. Current interpretive data was last revised 2022. Calcium 9.6 8.5 - 10.3 mg/dL [facility] [place] Bilirubin, total 0.4 0.1 - 1.2 mg/dL [facility] [place] Protein, pl 7.1 6.5 - 8.5 g/dL [facility] Albumin 4.0 3.5 - 5.0 g/dL [facility] Alk phos 68 40 - 130 Units/L [facility] [place] [facility] ALT 17 7 - 55 Units/L [facility] AST 30 10 - 50 Units/L [facility] Blood 12/05/2024 3:09 PM CDT 12/05/2024 3:24 PM CDT Raisa Hutchison PHARMACOLOGIST LAB BLOOD ORDERABLES Chrissy l Result [facility] [place] [address] * Pulmonary Function Test - (12/05/2024 2:04 PM CDT) FVC PRE 1.75 L [facility] FVC %PRE PRED 44 % [facility] FEV1 PRE 1.36 L [facility] FEV1 %PRE PRED 46 % [facility] FEV1/FVC PRE 77.8 % [facility] Anatomical Region Laterality Modality PFT 12/05/2024 1:26 PM CDT Narrative 12/05/2024 3:10 PM CDT Table formatting from the original result was not included. [facility] Division of Pulmonary & Critical Care Medicine [address] [place] [address]; [place] [address]; [place] [address]; [phone] Pulmonary Function Laboratory Pulmonary Stress Test Simple/Oxygen [...] with the written final report. PFT performed at:->[facility] Adult PFT Lab- [id number] Procedure:->Oxygen Assessment Titration [...] and %HbO2 is age dependent. However, the [facility] Pulmonary Function Laboratory defines hypoxemia as a PaO2 <56 mm Hg or a %HbO2 <89%. Starting on July of 2024 the [facility] Pulmonary Function Laboratory utilizes race neutral GLI Global normative equations. Linda James MD PFT ORDERABLES Final Res ult from Last 3 Months Insurance [employer] MEDICARE [facility] MEDICARE UHC MEDICARE ADVANTAGE [facility] MEDICARE Advance Directives For more information, please contact: [phone] * Full Code (Latest Code Status on File) Date Activated Date Inactivated Comments 10/21/2023 12:42 PM 10/21/2023 5:26 PM * Full Code Date Activated Date Inactivated Comments 02/25/2021 5:23 PM 02/26/2021 4:52 PM Care Teams Manager Web Relationship Specialty Start Date End Date David Traore MD [address] [place] [address] PCP - General Family Medicine 12/17/20 Candace Marsh MD [address] [place] [address] Consulting Physician Critical Care Med 01/27/21 Nicolasa Pollard, HEMA Registered Nurse Pulmonary Disease 06/11/22 Kristine Villareal MD Referring Physician Pulmonary Disease 11/02/23 Marie Edwards, RN [address] [facility] [address] [place], [place] [id number] Setter Off 11/02/23 Reyna Ramos MD [address] [place] [address] Consulting Physician Hospice and Palliative Medicine 11/17/23
--- NOTE | 2024-12-10 20:30 | ED.ARRPALP ---
HPI - Arrhythmia/Palpitations General Chief Complaint: Arrhythmia/Palpitations Stated Complaint: Elevated heart rate Time Seen by Provider: 12/10/24 20:24 Source: patient, family and other (Pre arrival urgent care phone call) Mode of arrival: ambulatory Limitations: no limitations History of Present Illness HPI narrative: Patient presents with concern for an elevated heart rate. He has a history of idiopathic interstitial lung disease for which he is on 2 liters/minute usually and follows with the interstitial pulmonary disease clinic at [facility] (Dr Abad/Kristine). Because of this underlying condition, he routinely wears a pulse oximeter to check his oxygen saturation. This device also shows heart rate and he notes that his heart rate was in the 130s to 150. He notes that his baseline is 3 liters/minute although he recently performed 6 minute walk at [facility] and they told him that he could down titrate to 2 liters/minute when sedentary or 4 liters/minute p.r.n.. He notes that he is short of breath chronically even at baseline although particularly with exertion. He has a history of cardiac catheterization that showed pulmonary hypertension although mild. This was the only significant interaction he is had with the financial recruiter as he does not follow with 1 regularly. He notes that it is not uncommon for his heart rate to be elevated but typically in the low 100s and even then if it does jump it usually resolves when he is at rest however it has not done this today and he has continued to have intermittent episodes. Denies any anita chest pain (not crushing) although he does describe an ache. He is on Ofev, Tivago, and recently started on a prednisone taper. Chronic LOPEZ. He became dizzy and weak particularly his legs. He has not appreciated any edema. He has a chronic cough. Denies any fevers or chills. He has a primary care physician. The exact etiology of his interstitial lung disease remains unknown as common causes have been excluded as part of his workup. He has never smoked and did not have chemical exposure. Related Data Home Medications ?Medication ?Instructions ?Recorded ?Confirmed ?Last Taken ?Type cetirizine 10 mg tablet 5 mg PO DAILY PRN Allergy Symptoms 07/19/19 12/10/24 05/07/21 History cholecalciferol (vitamin D3) 25 25 mcg PO DAILY 04/17/21 12/10/24 05/07/21 History mcg (1,000 unit) tablet (Vitamin D3) nintedanib 150 mg capsule 150 mg PO Q12H 09/22/21 12/10/24 Unknown History Allergies Allergy/AdvReac Type Severity Reaction Status Date / Time cat dander Allergy Other Verified 12/10/24 20:10 grass pollen Allergy Other Verified 12/10/24 20:10 [facility] Past Medical History Medical History (Updated 12/11/24 @ 00:02 by Federico Echevarria) Pulmonary hypertension ILD (interstitial lung disease) chronic, follows at [facility] ILD clinic (Dr Abad/Kristine) Rosacea Allergic rhinitis Chronic GERD Essential (primary) hypertension HLD (hyperlipidemia) KRISTI (obstructive sleep apnea) Benign prostatic hyperplasia with lower urinary tract symptoms Family History Family History Father Family history of cardiovascular disease CHF (congestive heart failure) Mother Family history of cardiovascular disease Cerebrovascular accident Social History Social History Social History: No chemical exposure Smoking status: Never smoker Second hand tobacco smoke exposure: No Alcohol intake: never Substance use: former Substance use type: does not use Living arrangements: with family Occupation/Education: occupation Gender identity (if verbalized by the patient): Male Sexual Orientation (if Verbalized by the Patient): Straight or Heterosexual Spiritual care concerns: No Exam Narrative: GENERAL: Thin HEAD: Normocephalic, atraumatic. EYES: Non injected, non icteric ENT: Nares clear, no rhinorrhea or epistaxis. Gross auditory acuity intact. NECK: Supple. No meningismus. CHEST: Tachypneic. On 3LPM. HEART: Regular rate and rhythm. . ABDOMEN: Soft, nondistended. No rigidity or guarding. Not peritoneal EXTREMITIES: Normal range of motion. No bilateral lower extremity edema. SKIN: Warm, dry, no rash. Pale. NEURO: No focal deficits. Alert and oriented. Answering questions. Following commands. Normal speech without aphasia or dysarthria. PSYCH: Normal mood and affect. Course Vital Signs Vital signs: Vital Signs Temperature 98.1 F 12/10/24 20:24 Pulse Rate 104 H 12/10/24 20:24 Respiratory Rate 31 H 12/10/24 20:24 Blood Pressure 124/83 12/10/24 20:24 Pulse Oximetry 100 12/10/24 20:24 Oxygen Delivery Nasal Cannula 12/10/24 20:24 Oxygen Flow Rate 3 12/10/24 20:24 Temperature 98.1 F 12/10/24 20:24 Pulse Rate 88 12/10/24 23:10 Respiratory Rate 21 H 12/10/24 23:10 Blood Pressure 123/83 12/10/24 23:10 Pulse Oximetry 100 12/10/24 23:10 Oxygen Delivery Nasal Cannula 12/10/24 20:24 Oxygen Flow Rate 3 12/10/24 20:24 MDM - Arrhythmia/Palpitations MDM Narrative Medical decision making narrative: Patient presents with an elevated heart rate. He has a history of severe chronic interstitial lung disease at 3 liters/minute nasal cannula and due to his degree of disease he often checks is SpO2 with a pulse oximeter. He noted that his heart rate had been in the 130s to 150s today. In the emergency department he is afebrile with vital signs notable for tachypnea and tachycardia of, saturating appropriately on his home O2 settings. Normal dimer. Mild hyponatremia, intermittent/chronic. Patient is able to ambulate on his 3 L nasal cannula without desaturation and with a heart rate maximum 108 beats per minute, observed by myself. Provided referral to cardiology as, especially if syptoms persist, patient likely to benefit from event monitor/Holter monitor for longer term evaluation. Advised to keep upcoming apopintments with PCP/specialists and to return to the ED as needed. Differential Diagnosis Differential diagnosis: Likely palpitations, anxiety, sinus tachycardia, artial fibrillation, artial flutter, ventricular premature beats, supraventricular tachycardia, ventricular tachycardia, WPW and other (Medication side effect; pulmonary embolism; thyroid dysfunction; disease progression; pulmonary hypertension; symptomatic anemia) Lab Data Attestation: I reviewed the patient's lab results. Lab results narrative: No leukocytosis, anemia, thrombocytopenia 12/10/24 20:33 12/10/24 20:33 Labs: Lab Results 12/10/24 12/10/24 12/10/24 Range/Units 20:33 20:33 21:09 WBC 9.7 (4.5-10.0) K/mm3 RBC 4.66 (4.6-6.20) M/mm3 Hgb 14.2 (14.0-18.0) g/dL Hct 44.3 (42.0-52.0) % MCV 95.1 (80-100) fl MCH 30.5 (26-34) pg MCHC 32.1 (32-36) g/dl RDW 14.1 (11.5-14.5) % Plt Count 248 (150-375) k/mm3 MPV 11.0 H (7.4-10.4) fl Immature Gran % (Auto) 0.3 (0-0.5) % Neut % (Auto) 85.2 H (45.5-73.1) % Lymph % (Auto) 9.5 L (18.3-44.2) % Carroll % (Auto) 4.7 (2.6-8.5) % Eos % (Auto) 0.1 (0-4.4) % Baso % (Auto) 0.2 (0.2-1.2) % Lymph # (Auto) 0.92 (0.9-3.2) K/mm3 Carroll # (Auto) 0.5 (0.1-0.6) K/mm3 Eos # (Auto) 0.0 (0-0.3) K/mm3 Baso # (Auto) 0.0 (0.0-0.1) K/mm3 Abs Immat Gran (auto) 0.03 (0.00-0.031) K/mm3 Absolute Neuts (auto) 8.3 H (1.3-6.7) K/mm3 Absolute Nucleated RBC 0.000 (0.0-0.012) K/mm3 Nucleated RBC % 0.0 (0.0-0.2) % PT 13.3 (11.1-14.7) Seconds INR 1.0 APTT 27.6 (22.3-36.8) Seconds D-Dimer 0.40 Cancelled (<0.48) ug/mL Sodium 133 L (137-145) mmol/L Potassium 4.3 (3.4-5.0) mmol/L Chloride 95 L (98-107) mmol/L Carbon Dioxide 32 H (22-30) mmol/L Anion Gap 6 (4-12) mmol/L BUN 26 H D (9-20) mg/dL Creatinine 0.71 (0.7-1.3) mg/dL Estim Creat Clear Calc 73 ml/min Estimated GFR > 60 (59 - ) Glucose 115 H (65-110) mg/dL Calcium 9.7 (8.4-10.2) mg/dL Total Bilirubin 0.3 (0.2-1.3) mg/dL AST 41 (17-59) U/L ALT 28 (6-50) U/L Alkaline Phosphatase 65 (38-126) U/L Troponin I < 0.012 (0.000-0.034) ng/mL Total Protein 7.0 (6.3-8.2) g/dL Albumin 4.0 (3.5-5.1) g/dL Lipase 636 H (23-300) U/L TSH 1.220 (0.465-4.680) uIU/mL Urine Opiates Screen Negative (Negative) Urine Methadone Screen Negative (Negative) Ur Barbiturates Screen Negative (Negative) Ur Phencyclidine Scrn Negative (Negative) Ur Amphetamine Screen Negative (Negative) U Benzodiazepines Scrn Negative (Negative) Urine Cocaine Screen Negative (Negative) U Cannabinoids Screen Negative (Negative) Imaging Data Radiologist's impression: IMPRESSION: Severe chronic interstitial lung disease, overlying pulmonary edema or infection is difficult to exclude. ECG Data EKG #1: Attestation: I personally reviewed and interpreted this ECG as follows: ECG completion date: 12/10/24 ECG completion time: 20:30 Prior ECG tracings: not available for review (No prior EKG per review of EMR) Interpretation: Sinus tachycardia rate of 104 beats per minute. SC interval 149. QRS 86. QT/QTC 325/385. Good R-wave progression across the precordial leads. T-wave inversion in 3 but otherwise upright in normal in contiguous inferior leads 2 and AVF. No other T-wave inversions. Will amplitude in precordial leads lateral V5 V6. Left atrial enlargement is suspected. Discharge Plan Discharge Clinical Impression: Chronic interstitial lung disease, Heart palpitations, Sinus tachycardia, Hyponatremia Patient Disposition: Home Condition: Stable Instructions: Antibiotic Form, Heart Palpitations (DC), Hyponatremia (ED), Chronic Lung Disease and Infection Prevention (ED), Tachycardia (ED) Additional Instructions: No clearly identifiable etiology for your symptoms. You received a 1 L fluid bolus. You were not noted to have another episode with such an elevated heart rate while in the emergency department on continuous cardiac monitoring or on the EKG. It is possible that this is a medication side effect but I do believe especially if this continues to happen that you would benefit from a wearing an event monitor/Holter monitor for longer duration continuous monitoring. You can follow up with cardiology for this - referral is provided below. Follow-up with the rest your care team including primary care physician and interstitial lung disease team at [facility]. Continue taking your medications as prescribed. Your sodium was slightly low however per review of your record it has chronically been slightly low, no acute changes and not to a degree to suggest that this is contributing. Return to the emergency department with any new worsening or unmanaged symptoms. Patient Language: Macedonian Prescriptions: No Action cholecalciferol (vitamin D3) [Vitamin D3] 25 mcg (1,000 unit) Tablet 25 mcg PO DAILY nintedanib 150 mg Capsule 150 mg PO Q12H cetirizine 10 mg tablet 5 mg PO DAILY PRN (Reason: Allergy Symptoms) azelastine 137 mcg (0.1 %) aerosol,spray See Rx Instructions .ROUTE .COMPLEX Qty: 30 2RF Dose Instruction: ADMINISTER 2 SPRAYS IN EACH NOSTRIL EVERY 12 HOURS Rx Instructions: ADMINISTER 2 SPRAYS IN EACH NOSTRIL EVERY 12 HOURS metronidazole 0.75 % cream 1 applic TOPICAL BID Qty: 45 5RF simvastatin 40 mg tablet 40 mg PO DAILY Qty: 90 2RF Rx Instructions: TAKE 1 TABLET BY MOUTH EVERY EVENING finasteride 5 mg tablet See Rx Instructions .ROUTE .COMPLEX Qty: 90 2RF Dose Instruction: TAKE 1 TABLET BY MOUTH DAILY Rx Instructions: TAKE 1 TABLET BY MOUTH DAILY losartan 50 mg tablet 50 mg PO DAILY Qty: 90 3RF sertraline [Zoloft] 25 mg tablet 25 mg PO DAILY Qty: 90 1RF Follow-up/Referrals: Chuck Connell MD [Physician] - (Cardiology) PHYSICIAN,MAIL DISTRIBUTION SCHEME EXAMINER [Primary Care Provider] - Time of Disposition: 23:01
[2024-12-10 20:47] LABS: Basophils Percent Auto 0.2 % (0.2-1.2); Eosinophils Percent Auto 0.1 % (0-4.4); Hematocrit 44.3 % (42.0-52.0); Hemoglobin 14.2 g/dL (14.0-18.0); Immature Granulocyte Absolute 0.03 K/mm3 (0.00-0.031); Immature Granulocyte Percent A 0.3 % (0-0.5); Lymphocytes Absolute Auto 0.92 K/mm3 (0.9-3.2); Lymphocytes Percent Auto 9.5 % (18.3-44.2); Mean Corpuscular HGB Conc 32.1 g/dl (32-36); Mean Corpuscular Hemoglobin 30.5 pg (26-34); Mean Corpuscular Volume 95.1 fl (80-100); Monocytes Absolute Auto 0.5 K/mm3 (0.1-0.6); Monocytes Percent Auto 4.7 % (2.6-8.5); Neutrophils Absolute Auto 8.3 K/mm3 (1.3-6.7); Neutrophils Percent Auto 85.2 % (45.5-73.1); Platelet Count Result 248 k/mm3 (150-375); Red Blood Count 4.66 M/mm3 (4.6-6.20); Red Cell Distribution Width 14.1 % (11.5-14.5); White Blood Count 9.7 K/mm3 (4.5-10.0)
--- OUTSIDE RECORDS SUMMARY | 2024-12-10 20:53 | XMS_ITS | Encounter Summary ---
Author Organization [facility] Address [address] [place] [address] Phone Care Team Providers Care Hot Walker Name Role Phone David Traore MD Primary Care Provider Candace Marsh MD Unavailable [phone] Nicolasa Pollard RN Unavailable More Kristine Street MD Unavailable [phone] Marie Edwards RN Unavailable [phone] Reyna Ramos MD Unavailable [phone] Encounter Details Date Type Department Care Team [...] on filedocumented in this encounter Care Teams Hot Walker Relationship Specialty Start Date End Date David Traore MD [address] [place] [address] PCP - General Family Medicine 12/17/20 Candace Marsh MD [address] [place], [place] [id number] Consulting Physician Critical Care Med 01/27/21 Nicolasa Pollard, RN Registered Nurse Pulmonary Disease 06/11/22 Kristine Villareal MD Referring Physician Pulmonary Disease 11/02/23 Marie Edwards, RN [address] [facility] [address] [place], [place] [id number] Drop Hammer Set Up Operator 11/02/23 Reyna Ramos MD [address] [place] [address] Consulting Physician Hospice and Palliative Medicine 11/17/23 documented as of this encounter
--- OUTSIDE RECORDS SUMMARY | 2024-12-10 20:53 | XMS_ITS | Encounter Summary ---
Author Organization [facility] Address [address] [place] [address] Phone Care Team Providers Care Supersonic Engineer Name Role Phone David Traore MD Primary Care Provider Candace Marsh MD Unavailable [phone] Nicolasa Pollard RN Unavailable More Kristine Street MD Unavailable [phone] Marie Edwards RN Unavailable [phone] Reyna Ramos MD Unavailable [phone] Encounter Details Date Type Department Care Team (Late st Contact Info) Description 12/10/2024 Telephone [facility] Pulmonary [address] [facility] 8th [place] [address] [place] [address] Cinthia Gimenez CPhT Social History [...] on filedocumented in this encounter Care Teams Supersonic Engineer Relationship Specialty Start Date End Date David Traore MD [address] [place] [address] PCP - General Family Medicine 12/17/20 Candace Marsh MD [address] [place] [address] Consulting Physician Critical Care Med 01/27/21 Nicolasa Pollard, HEMA Registered Nurse Pulmonary Disease 06/11/22 Kristine Villareal MD Referring Physician Pulmonary Disease 11/02/23 Marie Edwards, RN [address] [facility] [address] [place] [address] Electric Motor Repairer 11/02/23 Reyna Ramos MD [address] [place] [address] Consulting Physician Hospice and Palliative Medicine 11/17/23 documented as of this encounter
--- OUTSIDE RECORDS SUMMARY | 2024-12-10 20:53 | XMS_ITS | Clinical Summary ---
Author Organization [facility] Address [facility] [place] [address] Care Team Providers Care Channel Worker Name Role Phone David Traore MD Primary Care Provider Candace Marsh MD Unavailable [phone] Nicolasa Pollard RN Unavailable More Kristine Street MD Unavailable [phone] Marie Edwards RN Unavailable [phone] Reyna Ramos MD Unavailable [phone] Allergies Active Allergy Reactions Criticality Noted Date [...] (01/27/2021): Added automatically from request for surgery [id number] Resolved Problems Problem Noted Date Diagnosed Date [...] Type Department Care Team Description 12/10/2024 Telephone [facility] Pulmonary [facility] 8th [place] [address] Cinthia Gimenez CPhT 12/07/2024 Results Follow-Up [facility] Pulmonary [address] [place] [id number] Kristine Villareal MD Comprehensive metabolic panel, CBC with auto differential, Differential, auto, eGFR 12/06/2024 Telephone [facility] Pulmonary [address] [place] [address] [place] [address] Fernanda Castañeda RN 12/05/2024 3:05 PM CDT Lab [facility] ([facility]) [address] [place], [place] [phone] Interstitial lung disease (HCC); Epistaxis 12/05/2024 2:30 PM CDT Office Visit [facility] Pulmonary [address] [place] [address] [place] [address] Raisa Hutchison NP Interstitial lung disease (HCC) (Primary Dx); Epistaxis; Acute sinusitis, recurrence not specified, unspecified location; KRISTI (obstructive sleep apnea); Supplemental oxygen dependent; Environmental allergies; Immunization counseling 12/05/2024 1:11 PM CDT - 12/05/2024 11:59 PM CDT Hospital Encounter [facility] Pulmonary [address] [place] [address] Interstitial lung disease (HCC) Discharge Disposition: Discharge to home or self care 11/30/2024 Telephone [facility] Pulmonary [address] [place] [address] [place] [address] Nicolasa Pollard RN 11/30/2024 Telephone [facility] Pul[facility] [address] [facility] Advanced [facility] 8th [place] [address] [place] [address] Nicolasa Pollard, HEMA 11/23/2024 Orders Only [facility] Pulmonary [address] [facility] 8th [place] [address] [place] [address] Linda James MD Interstitial lung disease (HCC) (Primary Dx) 11/22/2024 Telephone [facility] Pulmonary [address] [facility] 8th [place] [address] [place] [address] Nicolasa Pollard, RN 11/02/2024 Telephone [facility] Pulmonary [facility] 8th [place] [address] [place] [address] Nicolasa Pollard, HEMA 10/31/2024 1:30 PM CDT Office Visit [facility] Allergy and Immunology [address] [facility] [address] [place] [address] Ofelia Isaac MD Chronic sinusitis, unspecified location 10/30/2024 Telephone [facility] Allergy and Immunology [facility] [address] [place] [address] Kacie Osuna 10/01/2024 Telephone [facility] Pulmonary [facility] 8th [place] [address] [place] [address] Nicolasa Pollard, RN from Last 3 Months [...] * eGFR (12/05/2024 3:09 PM CDT) Pathologist [facility] eGFR >90 >=60 mL/min/1. 73 m2 Comment: [...] NP LAB BLOOD ORDERABLES Chrissy beverly Result [facility] Department [place] [address] * (ABNORMAL) Differential, auto (12/05/2024 3:09 PM CDT) Pathologist [facility] Neutrophil abs 9.69(H) 1.50 - 6.50 K/cumm Imm gran abs 0.03 0.00 - 0.10 K/cumm [facility] Lymphocyte abs 1.23 0.80 - 3.30 K/cumm [facility] Monocyte abs 0.56 0.20 - 0.80 K/cumm [facility] Eosinophil abs 0.11 0.00 - 0.50 K/cumm [facility] Basophil abs 0.04 0.00 - 0.10 K/cumm [facility] Neutrophil pct 83.2 % [facility] Comment: Interpretive Data Percent cell count reference ranges are not reported, since discordance with absolute values may lead to misinterpretation of CBC data. Current Interpretive Data was last revised on 2017. Imm gran pct 0.3 % [facility] Comment: Interpretive Data Percent cell count reference ranges are not reported, since discordance with absolute values may lead to misinterpretation of CBC data. Current Interpretive Data was last revised on 2017. Lymphocyte pct 10.5 % [facility] Comment: Interpretive Data Percent cell count reference ranges are not reported, since discordance with absolute values may lead to misinterpretation of CBC data. Current Interpretive Data was last revised on 2017. Monocyte pct 4.8 % [facility] Comment: Interpretive Data Percent cell count reference ranges are not reported, since discordance with absolute values may lead to misinterpretation of CBC data. Current Interpretive Data was last revised on 2017. Eosinophil pct 0.9 % [facility] Comment: Interpretive Data Percent cell count reference ranges are not reported, since discordance with absolute values may lead to misinterpretation of CBC data. Current Interpretive Data was last revised on 2017. Basophil pct 0.3 % [facility] Comment: Interpretive Data Percent cell count reference ranges are not reported, since discordance with absolute values may lead to misinterpretation of CBC data. Current Interpretive Data was last revised on 2017. Blood 12/05/2024 3:09 PM CDT 12/05/2024 3:24 PM CDT us Raisa Hutchison NP LAB BLOOD ORDERABLES Chrissy beverly Result [facility] Department [place] [address] * (ABNORMAL) CBC with auto differential (12/05/2024 3:09 PM CDT) WBC 11.66(H) 3.80 - 9.90 K/cumm Hgb 14.4 13.0 - 17.5 g/dL [facility] Hct 44.0 38.9 - 50.3 % [facility] Plt 266 150 - 400 K/cumm [facility] MPV 10.8 9.1 - 12.3 fL [facility] RBC 4.70 4.30 - 5.80 M/cumm [facility] MCV 93.6 81.3 - 96.4 fL [facility] MCH 30.6 27.1 - 33.3 pg [facility] MCHC 32.7 32.3 - 35.7 g/dL [facility] RDW CV 13.9 11.1 - 14.9 % [facility] RDW SD 47.1 35.7 - 48.1 fL [facility] NRBC abs 0.00 0.00 - 0.01 K/cumm [facility] Blood 12/05/2024 3:09 PM CDT 12/05/2024 3:24 PM CDT Raisa Hutchison NP LAB BLOOD ORDERABLES Chrissy l Result [facility] [place] [address] * (ABNORMAL) Comprehensive metabolic panel (12/05/2024 3:09 PM CDT) Sodium 140 135 - 145 mmol/L Potassium, pl 4.3 3.3 - 4.9 mmol/L [facility] Chloride 100 97 - 110 mmol/L [facility] CO2 34(H) 22 - 32 mmol/L [facility] Anion gap 6 2 - 15 mmol/L [facility] BUN 26(H) 6 - 25 mg/dL [facility] Creatinine 0.76(L) 0.80 - 1.30 mg/dL [facility] Glucose 95 70 - 199 mg/dL [facility] Comment: Interpretive Data Fasting glucose >/= 126 [...] 2022. Calcium 9.6 8.5 - 10.3 mg/dL [facility] Bilirubin, total 0.4 0.1 - 1.2 mg/dL [facility] Protein, pl 7.1 6.5 - 8.5 g/dL [facility] Albumin 4.0 3.5 - 5.0 g/dL [facility] Alk phos 68 40 - 130 Units/L [facility] ALT 17 7 - 55 Units/L [facility] AST 30 10 - 50 Units/L [facility] Blood 12/05/2024 3:09 PM CDT 12/05/2024 3:24 PM CDT Raisa Hutchison MUD WORKER LAB BLOOD ORDERABLES Chrissy l Result [facility] [place] [address] * Pulmonary Function Test - (12/05/2024 2:04 PM CDT) FVC PRE 1.75 L [facility] FVC %PRE PRED 44 % [facility] FEV1 PRE 1.36 L [facility] FEV1 %PRE PRED 46 % [facility] FEV1/FVC PRE 77.8 % [facility] Anatomical Region Laterality Modality PFT 12/05/2024 1:26 PM CDT Narrative 12/05/2024 3:10 PM CDT Table formatting from the original result was not included. [facility] Division of Pulmonary & Critical Care Medicine [address] [place] [address]; [place] [address]; [place] [address]; [phone] Pulmonary Function Laboratory Pulmonary Stress Test Simple/Oxygen [...] with the written final report. PFT performed at:->[facility] Adult PFT Lab- CAM-8D Procedure:->Oxygen Assessment Titration [...] and %HbO2 is age dependent. However, the [facility] Pulmonary Function Laboratory defines hypoxemia as a PaO2 <56 mm Hg or a %HbO2 <89%. Starting on July of 2024 the [facility] Pulmonary Function Laboratory utilizes race neutral GLI Global normative equations. Linda James MD PFT ORDERABLES Final Res ult from Last 3 Months Insurance [employer] MEDICARE [facility] MEDIC[facility] MEDICARE U[employer] MEDICARE ADVANTAGE [facility] MEDICARE Advance Directives For more information, please contact: [phone] * Full Code (Latest Code Status on File) Date Activated Date Inactivated Comments 10/21/2023 12:42 PM 10/21/2023 5:26 PM * Full Code Date Activated Date Inactivated Comments 02/25/2021 5:23 PM 02/26/2021 4:52 PM Care Teams Channel Worker Relationship Specialty Start Date End Date David Traore MD [address] [place] [address] PCP - General Family Medicine 12/17/20 Candace [place] MD [address] [place] [address] Consulting Physician Critical Care Med 01/27/21 Nicolasa Pollard, HEMA Registered Nurse Pulmonary Disease 06/11/22 Kristine Villareal MD Referring Physician Pulmonary Disease 11/02/23 Marie Edwards, RN [address] [facility] [address] [place], [place] [id number] Apartment Rental Agent 11/02/23 Reyna Ramos MD [address] [place] [address] Consulting Physician Hospice and Palliative Medicine 11/17/23
--- OUTSIDE RECORDS SUMMARY | 2024-12-10 20:53 | XMS_ITS | Encounter Summary ---
Author Organization [facility] Address [address] [place] [address] Phone Care Team Providers Care Carpenter Helper Name Role Phone David Traore MD Primary Care Provider Candace [place] MD Unavailable [phone] Nicolasa Pollard RN Unavailable More Kristine Street MD Unavailable Marie Edwards RN Unavailable [phone] Reyna Ramos MD Unavailable [phone] Encounter Details Date Type Department Care Team [...] on filedocumented in this encounter Care Teams Carpenter Helper Relationship Specialty Start Date End Date David Traore MD [address] [place] [address] PCP - General Family Medicine 12/17/20 Candace [place] MD [address] [place] [address] Consulting Physician Critical Care Med 01/27/21 Nicolasa Pollard, HEMA Registered Nurse Pulmonary Disease 06/11/22 Kristine Villareal MD Referring Physician Pulmonary Disease 11/02/23 Marie Edwards, RN [address] [facility] [address] [place], [place] [id number] Strip Cutter 11/02/23 Reyna Ramos MD [address] [place] [address] Consulting Physician Hospice and Palliative Medicine 11/17/23 documented as of this encounter
--- OUTSIDE RECORDS SUMMARY | 2024-12-10 20:53 | XMS_ITS | Encounter Summary ---
Author Organization [facility] Address [address] [place] [address] Phone Care Team Providers Care Senior Civil Engineer Name Role Phone David Traore MD Primary Care Provider Candace [place] MD Unavailable Nicolasa Pollard RN Unavailable More roseyilaKristine Ag MD Unavailable [phone] Marie Edwards RN Unavailable [phone] Reyna Ramos MD Unavailable [phone] Encounter Details Date Type Department Care Team (Latest Contact Info) Description 12/07/2024 Results Follow-Up [facility] [address] [facility] Advanced Medicine 8th [place] [address] [place] [address] Kristine Villareal MD [address] [facility] [address] [place] [address] Comprehensive metabolic panel, CBC with auto differential, [...] on filedocumented in this encounter Care Teams Senior Civil Engineer Relationship Specialty Start Date End Date David Traore MD [address] [place] [address] [address] [facility] [address] [place] [id number] PCP - General Family Medicine 12/17/20 Candace [place] MD [address] [place] [address] [address] [facility] [address] [place] [address] Consulting Physician Critical Care Med 01/27/21 Nicolasa Pollard, HEMA Registered Nurse Pulmonary Disease 06/11/22 Kristine Villareal MD Referring Physician Pulmonary Disease 11/02/23 Marie Edwards, HEMA [address] [facility] [address] [place] [address] Senior Product Development Manager 11/02/23 Reyna Ramos MD [address] [place] [address] Consulting Physician Hospice and Palliative Medicine 11/17/23 documented as of this encounter
--- OUTSIDE RECORDS SUMMARY | 2024-12-10 20:53 | XMS_ITS | Clinical Summary ---
Author Organization [facility] Address [address] [place] [address] Care Team Providers Care Finishing Department Supervisor Name Role Phone David Traore MD Primary Care Provider [phone] Devon Mills MD Unavailable [phone] Source Comments [facility],non-owned Affiliates and Associated Physician Practices is amultiple site organization consisting of ambulatory clinics and hospital sitesin [place], [place], [place] and [place]. This disclosure is being madepursuant to the Care Everywhere program and may not contain all information available regarding this patient. Last updated 18.[facility] [employer] Allergies No known active allergies Immunizations Immunization [...] to complete this topic Insurance Care Teams Finishing Department Supervisor Relationship Specialty Start Date End Date David Traore MD [address] [place] [id number] PCP - General 03/19/19 Devon Mills MD [address] [place] [address] Family Medicine 03/19/19
--- OUTSIDE RECORDS SUMMARY | 2024-12-10 20:53 | XMS_ITS | Encounter Summary ---
Author Organization [facility] Address [address] [place] [address] Phone Care Team Providers Care Resume Writer Name Role Phone David Traore MD Primary Care Provider Candace [place] MD Unavailable [phone] Nicolasa Pollard RN Unavailable More Kristine Street MD Unavailable [phone] Marie Edwards RN Unavailable [phone] Reyna Ramos MD Unavailable [phone] Encounter Details Date Type Department Care Team [...] on filedocumented in this encounter Care Teams Resume Writer Relationship Specialty Start Date End Date David Traore MD [address] [place] [address] PCP - General Family Medicine 12/17/20 Candace [place] MD [address] [place], [place] [phone] Consulting Physician Critical Care Med 01/27/21 Nicolasa Pollard, HEMA Registered Nurse Pulmonary Disease 06/11/22 Kristine Villareal MD Referring Physician Pulmonary Disease 11/02/23 Marie Edwards, RN [address] [facility] [address] [place] [address] Floor Tech 11/02/23 Reyna Ramos MD [address] [place] [address] Consulting Physician Hospice and Palliative Medicine 11/17/23 documented as of this encounter
--- OUTSIDE RECORDS SUMMARY | 2024-12-10 20:54 | XMS_ITS | Referral Summary ---
Author Organization [facility] Address [address] [place] [address] Care Team Providers Care Retail Planning Manager Name Role Phone David Traore MD Primary Care Provider Candace Marsh MD Unavailable Nicolasa Pollard RN Unavailable More roseyilable Kristine Villareal MD Unavailable [phone] Marie Edwards RN Unavailable [phone] Reyna Ramos MD Unavailable [phone] Encounters Date Type Department Care Team Description 12/10/2024 Telephone [facility] Pulmonary [address] [place] [address] [place] [address] Cinthia Gimenez CPhT 12/07/2024 Results Follow-Up [facility] Pulmonary [address]th [place] [address] [place] [address] Kristine Villareal MD Comprehensive metabolic panel, CBC with auto differential, Differential, auto, eGFR 12/06/2024 Telephone [facility] Pulmonary [address] [place] [address] [place] [address] Fernanda Castañeda RN 12/05/2024 3:05 PM CDT Lab [facility] [address] [place] [address] Interstitial lung disease (HCC); Epistaxis 12/05/2024 2:30 PM CDT Office Visit [facility] Pulmonary [facility] [place] [address] [place] [address] Raisa Hutchison NP Interstitial lung disease (HCC) (Primary Dx); Epistaxis; Acute sinusitis, recurrence not specified, unspecified location; KRISTI (obstructive sleep apnea); Supplemental oxygen dependent; Environmental allergies; Immunization counseling 12/05/2024 1:11 PM CDT - 12/05/2024 11:59 PM CDT Hospital Encounter [facility] Pulmonary [address] [place] [address] Interstitial lung disease (HCC) Discharge Disposition: Discharge to home or self care 11/30/2024 Telephone [facility] Pulmonary [address] [place] [address] [place] [address] [place] [address] Nicolasa Pollard, HEMA 11/30/2024 Telephone [facility] Pulmonary [address] [place] [address] [place] [address] [place] [address] Nicolasa Pollard, HEMA 11/23/2024 Orders Only [facility] Pulmonary [address] [place] [address] [place] [address] [place] [address] Linda James MD Interstitial lung disease (HCC) (Primary Dx) 11/22/2024 Telephone [facility] Pulmonary [address] [place] [address] [place] [address] [place] [address] Nicolasa Pollard, RN 11/02/2024 Telephone [facility] Pulmonary [facility] [place] [address] [place] [address] Nicolasa Pollard, RN 10/31/2024 1:30 PM CDT Office Visit [facility] Allergy and Immunology [address] [place] [address] [place] [address] Ofelia Isaac MD Chronic sinusitis, unspecified location 10/30/2024 Telephone [facility] Allergy and Immunology [address] [place] [address] [place] [address] Kacie Osuna 10/01/2024 Telephone [facility] Pulmonary [address] [place] [address] [place] [address] Nicolasa Pollard RN from Last [...] (01/27/2021): Added automatically from request for surgery [id number] Resolved Problems Problem Noted Date Diagnosed Date [...] LAB BLOOD ORDERABLES Chrissy rush Result [facility] Department of Laboratories [place], [place] [id number] * (ABNORMAL) Differential, auto (12/05/2024 3:09 PM CDT) Neutrophil abs 9.69(H) 1.50 - 6.50 K/cumm Imm gran abs 0.03 0.00 - 0.10 K/cumm [facility] Lymphocyte abs 1.23 0.80 - 3.30 K/cumm [facility] Monocyte abs 0.56 0.20 - 0.80 K/cumm [facility] Eosinophil abs 0.11 0.00 - 0.50 K/cumm [facility] Basophil abs 0.04 0.00 - 0.10 K/cumm [facility] Neutrophil pct 83.2 % [facility] Comment: Interpretive Data Percent cell count reference ranges are not reported, since discordance with absolute values may lead to misinterpretation of CBC data. Current Interpretive Data was last revised on 2017. Imm gran pct 0.3 % [facility] Comment: Interpretive Data Percent cell count reference ranges are not reported, since discordance with absolute values may lead to misinterpretation of CBC data. Current Interpretive Data was last revised on 2017. Lymphocyte pct 10.5 % [facility] Comment: Interpretive Data Percent cell count reference ranges are not reported, since discordance with absolute values may lead to misinterpretation of CBC data. Current Interpretive Data was last revised on 2017. Monocyte pct 4.8 % [facility] Comment: Interpretive Data Percent cell count reference ranges are not reported, since discordance with absolute values may lead to misinterpretation of CBC data. Current Interpretive Data was last revised on 2017. Eosinophil pct 0.9 % [facility] Comment: Interpretive Data Percent cell count reference ranges are not reported, since discordance with absolute values may lead to misinterpretation of CBC data. Current Interpretive Data was last revised on 2017. Basophil pct 0.3 % [facility] Comment: Interpretive Data Percent cell count reference ranges are not reported, since discordance with absolute values may lead to misinterpretation of CBC data. Current Interpretive Data was last revised on 2017. Blood 12/05/2024 3:09 PM CDT 12/05/2024 3:24 PM CDT Raisa Hutchison QUARRY WORKER LAB BLOOD ORDERABLES Chrissy l Result Performing Organization Address [facility]/ZIP Co de Phone Number [facility] Department [place] [address] * (ABNORMAL) CBC with auto differential (12/05/2024 3:09 PM CDT) Pathologist [facility] WBC 11.66(H) 3.80 - 9.90 K/cumm Hgb 14.4 13.0 - 17.5 g/dL [facility] Hct 44.0 38.9 - 50.3 % [facility] Plt 266 150 - 400 K/cumm [facility] MPV 10.8 9.1 - 12.3 fL [facility] RBC 4.70 4.30 - 5.80 M/cumm [facility] MCV 93.6 81.3 - 96.4 fL [facility] MCH 30.6 27.1 - 33.3 pg [facility] MCHC 32.7 32.3 - 35.7 g/dL [facility] RDW CV 13.9 11.1 - 14.9 % [facility] RDW SD 47.1 35.7 - 48.1 fL [facility] NRBC abs 0.00 0.00 - 0.01 K/cumm [facility] Blood 12/05/2024 3:09 PM CDT 12/05/2024 3:24 PM CDT Raisa Hutchison QUARRY WORKER LAB BLOOD ORDERABLES Chrissy l Result [facility] Department [place] [address] * (ABNORMAL) Comprehensive metabolic panel (12/05/2024 3:09 PM CDT) Pathologist [facility] Sodium 140 135 - 145 mmol/L Potassium, pl 4.3 3.3 - 4.9 mmol/L [facility] Chloride 100 97 - 110 mmol/L [facility] CO2 34(H) 22 - 32 mmol/L [facility] Anion gap 6 2 - 15 mmol/L [facility] BUN 26(H) 6 - 25 mg/dL [facility] Creatinine 0.76(L) 0.80 - 1.30 mg/dL [facility] Glucose 95 70 - 199 mg/dL [facility] Comment: Interpretive Data Fasting glucose >/= [...] 2022. Calcium 9.6 8.5 - 10.3 mg/dL [facility] Bilirubin, total 0.4 0.1 - 1.2 mg/dL [facility] Protein, pl 7.1 6.5 - 8.5 g/dL [facility] Albumin 4.0 3.5 - 5.0 g/dL [facility] Alk phos 68 40 - 130 Units/L [facility] ALT 17 7 - 55 Units/L [facility] AST 30 10 - 50 Units/L [facility] Blood 12/05/2024 3:09 PM CDT 12/05/2024 3:24 PM CDT Raisa Hutchison QUARRY WORKER LAB BLOOD ORDERABLES Chrissy l Result [facility] [place] [address] * Pulmonary Function Test - (12/05/2024 2:04 PM CDT) FVC PRE 1.75 L [facility] FVC %PRE PRED 44 % [facility] FEV1 PRE 1.36 L [facility] FEV1 %PRE PRED 46 % [facility] FEV1/FVC PRE 77.8 % [facility] Anatomical Region Laterality Modality PFT 12/05/2024 1:26 PM CDT Narrative 12/05/2024 3:10 PM CDT Table formatting from the original result was not included. [facility] Division of Pulmonary & Critical Care Medicine [address] [place] [address]; [place] [address]; [place] [address]; [phone] Pulmonary Function Laboratory Pulmonary Stress Test Simple/Oxygen [...] with the written final report. PFT performed at:->[facility] Adult PFT Lab- [id number] Procedure:->Oxygen [...] and %HbO2 is age dependent. However, the [facility] Pulmonary Function Laboratory defines hypoxemia as a PaO2 <56 mm Hg or a %HbO2 <89%. Starting on July of 2024 the [facility] Pulmonary Function Laboratory utilizes race neutral GLI Global normative equations. Linda James MD PFT ORDERABLES Final Res ult from Last 3 Months Insurance [employer] [facility]IC[facility] MEDICARE U[employer] MEDICARE ADVANTAGE [facility] MED[facility] Advance Directives For more information, please contact: [phone] * Full Code (Latest Code Status on File) Date Activated Date Inactivated Comments 10/21/2023 12:42 PM 10/21/2023 5:26 PM * Full Code Date Activated Date Inactivated Comments 02/25/2021 5:23 PM 02/26/2021 4:52 PM Care Teams Retail Planning Manager Relationship Specialty Start Date End Date David Traore MD [address] [place] [address] PCP - General Family Medicine 12/17/20 Candace Marsh MD [address] [place] [address] Consulting Physician Critical Care Med 01/27/21 Nicolasa Pollard, HEMA Registered Nurse Pulmonary Disease 06/11/22 Kristine Villareal MD Referring Physician Pulmonary Disease 11/02/23 Marie Edwards, RN [address] [facility] [address] [place] [address] Loan Specialist 11/02/23 Reyna Ramos MD [address] [place] [address] Consulting Physician Hospice and Palliative Medicine 11/17/23
[2024-12-10 21:03] LABS: Prothrombin Time 13.3 Seconds (11.1-14.7)
[2024-12-10 21:04] LABS: Partial Thromboplastin Time 27.6 Seconds (22.3-36.8)
[2024-12-10 21:39] LABS: Amphetamine Screen Urine Negative (Negative); Barbiturate Screen Urine Negative (Negative); Benzodiazepines Screen Urine Negative (Negative); Cannabinoid Screen Urine Negative (Negative); Cocaine Screen Urine Negative (Negative); Methadone Screen Urine Negative (Negative); Opiate Screen Urine Negative (Negative); Phencyclidine Screen Urine Negative (Negative)
[2024-12-10 21:45] LABS: Alanine Aminotransferase 28 U/L (6-50); Alkaline Phosphatase 65 U/L (38-126); Anion Gap 6 mmol/L (4-12); Aspartate Amino Transferase 41 U/L (17-59); Bilirubin,Total 0.3 mg/dL (0.2-1.3); Blood Urea Nitrogen 26 mg/dL (9-20); Calcium 9.7 mg/dL (8.4-10.2); Carbon Dioxide 32 mmol/L (22-30); Chloride 95 mmol/L (98-107); Estimated CRCL calculation 73 ml/min; Estimated Glomerular Filt Rate > 60; Glucose 115 mg/dL (65-110); Lipase 636 U/L (23-300); Potassium 4.3 mmol/L (3.4-5.0); Sodium 133 mmol/L (137-145)
[2024-12-10 21:57] LABS: Troponin I < 0.012 ng/mL (0.000-0.034)
[2024-12-10] MEDS: SODIUM CHLORIDE 0.9% IV 1,000 ML 999 ML IV CONT (22:31)
== END 2024-12-10 23:11 | disposition home or self-care (01) ==
PROVIDERS: Emergency Provider Student in an Organized Health Care Education/Training Program
DX: J84.9 Interstitial pulmonary disease, unspecified (principal); R00.2 Palpitations; R00.0 Tachycardia, unspecified; E87.1 Hypo-osmolality and hyponatremia; K21.9 Gastro-esophageal reflux disease without esophagitis; I10 Essential (primary) hypertension; E78.5 Hyperlipidemia, unspecified; G47.30 Sleep apnea, unspecified; N40.1 Benign prostatic hyperplasia with lower urinary tract symptoms; I27.20 Pulmonary hypertension, unspecified; Z99.81 Dependence on supplemental oxygen; R06.02 Shortness of breath; Z79.899 Other long term (current) drug therapy
CPT/HCPCS: 36415; 71046; 80053; 80307; 83690; 84443; 84484; 85025; 85380; 85610; 85730; 93005; 96360; 99284; J7030